=== PATIENT | female | born 1975 | race Caucasian/White ===

== ENCOUNTER 2020-06-18 17:52 | Outpatient (REF) | payer OTHER, SELFPAY | END 2020-06-18 17:53 | disposition home or self-care (01) | LOC: HO.LAB 17:52 | PROVIDERS: Visit Provider Internal Medicine | DX: Z20.828 Contact with and (suspected) exposure to other viral communicable diseases (principal) | CPT/HCPCS: C9803; U0003 ==

== ENCOUNTER 2021-08-07 16:17 | Emergency (ER) | payer OTHER, SELFPAY ==
--- NOTE | ~2021-08-07 | CT_ITS ---
EXAMINATION: CT ABDOMEN AND PELVIS WITHOUT CONTRAST CLINICAL INFORMATION: Flank pain. COMPARISON: CT abdomen/pelvis dated from 01/07/2010. TECHNIQUE: Multidetector volumetric imaging was performed from the superior aspect of the liver through the pubic symphysis. Sagittal and coronal reformatted images were obtained on the technologist's workstation. This CT examination was performed using dose optimization techniques as appropriate, variously including the following: *Automated exposure control *Adjustment of mA and/or kV according to patient size (this includes techniques or standardized protocols for targeted exams where dose is matched to indication/reason for exam; i.e. extremities or head) *Use of iterative reconstruction technique DLP: 557 mGy-cm FINDINGS: LUNG BASES: Evaluation of small pulmonary nodules is limited due to respiratory motion. No focal consolidation or pleural effusion. LIVER, GALLBLADDER, AND BILIARY TREE: The liver is normal in size, shape, and attenuation. No focal hepatic lesion or biliary ductal dilatation is present. The gallbladder is unremarkable with no evidence of radiopaque gallstones, gallbladder wall thickening, or obvious pericholecystic inflammatory changes. PANCREAS: Unremarkable. SPLEEN: Unremarkable. ADRENAL GLANDS: Unremarkable. KIDNEYS AND URETERS: The kidneys are normal in size, shape, and attenuation. There is a 1 cm water density exophytic cyst in the upper pole of the right kidney. No hydronephrosis, hydroureter, or calculi seen. No perinephric stranding. BLADDER: Unremarkable. GASTROINTESTINAL TRACT: Stomach and the small bowel are nondilated. Normal appendix. Mild colonic diverticulosis without inflammatory changes to suspect acute diverticulitis. No bowel obstruction. ABDOMINAL WALL: Small fat-containing umbilical hernia. LYMPH NODES: No lymphadenopathy by size criteria. VASCULAR: Unremarkable. PELVIC VISCERA: The uterus is retroflexed. An IUD is within the endometrium. No adnexal lesions. OSSEOUS STRUCTURES: No acute or aggressive appearing osseous abnormalities. Mild thoracolumbar spondylosis. Small anteroinferior osteophyte at L2. Nonspecific sclerosis in the inferior endplates of T10 and T11 is likely degenerative in nature. CT/CT abdomen pelvis wo con IMPRESSION: Mild diverticulosis without evidence of acute diverticulitis. No nephrolithiasis or hydronephrosis.
--- NOTE | ~2021-08-07 | US_ITS ---
EXAMINATION: US ABDOMEN LIMITED CLINICAL INFORMATION: Right upper quadrant pain. COMPARISON: CT abdomen/pelvis done earlier today at 7:52 PM. TECHNIQUE: Real-time imaging of the right upper quadrant abdominal viscera. FINDINGS: PANCREAS: Not visualized due to overlying bowel gas. LIVER: Increased parenchymal echogenicity suggesting hepatic steatosis. No focal abnormalities. No intrahepatic biliary ductal dilatation. GALLBLADDER: Normal. The gallbladder is physiologically distended without evidence of stones, sludge, polyps, wall thickening or pericholecystic fluid. COMMON BILE DUCT: Normal in caliber measuring 0.4 cm in diameter. RIGHT KIDNEY: Normal. No hydronephrosis. No renal calculi or focal parenchymal lesions. The kidney measures 12 cm in maximum dimension. FREE FLUID: None. US/US abdomen limited IMPRESSION: Increased hepatic parenchymal echogenicity suggesting the presence of hepatic steatosis. Otherwise, normal examination.
[2021-08-07 16:26] VITALS: BP 153/102; PULSE 98; RESP 20; TEMP 36.7; O2SAT 98; BMI 27.4
--- NOTE | 2021-08-07 18:20 | ED.BACK ---
HPI - Back Pain/Injury General Chief Complaint: Back Pain/Injury <JEFFY Ji - Last Filed: 08/08/21 00:49> Stated Complaint: severe side and back pain <JEFFY Ji - Last Filed: 08/08/21 00:49> Time Seen by Provider: 08/07/21 16:31 <JEFFY Ji - Last Filed: 08/08/21 00:49> Source: patient <JEFFY Ji Last Filed: 08/08/21 00:49> Mode of arrival: ambulatory <JEFFY Ji Last Filed: 08/08/21 00:49> Limitations: no limitations <JEFFY Ji - Last Filed: 08/08/21 00:49> History of Present Illness HPI Narrative: 46-year-old female no known medical history presents the emergency department with complaints of severe 10/10 right-sided flank pain that started 3 days ago and has been progressively worsening. Patient tells me that the pain is severe in nature intermittent, described as stabbing. She tells me it is worse than childbirth. She tells me she is having no urinary symptoms. This has never happened to her before. She has no history of kidney stones. She denies fevers, chills, nausea, vomiting, chest pain, shortness of breath, for dysuria, hematuria, urinary frequency, urgency. <JEFFY Ji - Last Filed: 08/08/21 00:49> MD elicited complaint: back pain <JEFFY Ji Last Filed: 08/08/21 00:49> Onset (ago): day(s) (3) <JEFFY Ji Last Filed: 08/08/21 00:49> Timing: intermittent <JEFFY Ji - Last Filed: 08/08/21 00:49> Severity: severe <JEFFY Ji Last Filed: 08/08/21 00:49> Pain scale (0-10): 10 <JEFFY Ji Last Filed: 08/08/21 00:49> Similar Symptoms Previously: No <JEFFY Ji Last Filed: 08/08/21 00:49> Quality: stabbing <JEFFY Ji Last Filed: 08/08/21 00:49> Location: right flank <JEFFY Ji Last Filed: 08/08/21 00:49> Radiation: none <JEFFY Ji Last Filed: 08/08/21 00:49> Exacerbating factors: none <JEFFY Ji Last Filed: 08/08/21 00:49> Relieving factors: none <JEFFY Ji Last Filed: 08/08/21 00:49> Associated symptoms: denies other symptoms <JEFFY Ji Last Filed: 08/08/21 00:49> Work related injury: No <JEFFY Ji Last Filed: 08/08/21 00:49> Related Data Home Medications: Previous Rx's Medication Instructions Recorded cyclobenzaprine 10 mg tablet 10 mg PO BEDTIME PRN #10 tab 08/08/21 morphine 15 mg immediate release 15 mg PO Q8H PRN #8 tab 08/08/21 tablet <JEFFY Ji Last Filed: 08/08/21 00:49> Allergies/Adverse Reactions: Allergies Allergy/AdvReac Type Severity Reaction Status Date / Time gluten [GLUTEN] Allergy Severe DIARRHEA, Unverified 03/06/20 16:58 ABD CRAMPING Sulfa (Sulfonamide Allergy Unknown UNKNOWN Unverified 03/06/20 16:58 Antibiotics) <JEFFY Ji Last Filed: 08/08/21 00:49> Review of Systems Review of Systems: Constitutional : No Fever, No Chills ENT/Mouth : No sore throat Eyes: No Eye Pain, No Swelling, No Redness Cardiovascular : No Chest Pain, No SOB Respiratory : No Cough, No Sputum, No Wheezing Gastrointestinal : positive Nausea, No Vomiting, No Diarrhea, No abdominal pain Genitourinary : No Dysuria, No urinary frequency, No Hematuria, positive Flank Pain, No hesitancy Musculoskeletal : No joint pain, No Myalgias Skin : No Skin Lesions, No rash Neuro : No Weakness, No Numbness, No Headache Psych : No Anxiety/Panic, No Depression All other systems reviewed and are negative <JEFFY Ji - Last Filed: 08/08/21 00:49> Yes all other systems are reviewed and are negative <JEFFY Ji - Last Filed: 08/08/21 00:49> [facility] Past Medical History Attestation statement: The following information was validated with the patient. <JEFFY Ji - Last Filed: 08/08/21 00:49> Source: old records reviewed and nursing notes reviewed <JEFFY Ji - Last Filed: 08/08/21 00:49> Social History Social History: Social History Advance Directives: No Advance Directives Information Provided: No Patient : No <JEFFY Ji - Last Filed: 08/08/21 00:49> Physical Exam Vital Signs: Vital Signs: Last Vital Signs Temp 98.0 F 08/07/21 16:26 Pulse 86 08/07/21 21:57 Resp 18 08/07/21 21:57 BP 148/93 H 08/07/21 21:57 Pulse Ox 96 08/07/21 21:57 BMI result Body Mass Index 27.4 Patient noted to be hypertensive however is experiencing severe right-sided flank pain, will recheck vitals after pain is well controlled with pain medicine. <JEFFY Ji - Last Filed: 08/08/21 00:49> Vital Signs: Last Vital Signs Temp 98.0 F 08/07/21 16:26 Pulse 86 08/07/21 21:57 Resp 18 08/07/21 21:57 BP 148/93 H 08/07/21 21:57 Pulse Ox 96 08/07/21 21:57 BMI result Body Mass Index 27.4 <Li Boyle MD - Last Filed: 08/08/21 01:17> Appearance: Alert.? Oriented X3.? No acute distress.? Head: Normocephalic, atraumatic, no step-offs or deformities Eyes: Pupils equal, round and reactive to light.? ENT: Pharynx normal.? Neck: Normal inspection.? Neck supple.? CVS: Normal heart rate and rhythm.? Pulses normal.? Respiratory: No respiratory distress.? Breath sounds normal.? Abdomen: Soft and nontender.? Skin: Skin warm and dry.? Normal skin color.? Normal skin turgor.? Extremities: No lower extremity edema.? No calf ttp. 5/5 strength to bilateral upper and lower extremities Back: No midline tenderness, no C-spine tenderness, full range of motion, + CVA tendernes on right negative on left. Neuro: Oriented X 3.? No motor deficit.? No sensory deficit. <JEFFY Ji - Last Filed: 08/08/21 00:49> Course Reevaluation(s) Reevaluation #1: Elevated white blood cell count, this is why ceftriaxone 1 g was given. Patient is noted to be hypercoagulable. No acute electrolyte abnormalities. Bilirubin slightly elevated 1.1. Transaminases within normal limits. Urine is clean. Urine negative. COVID negative. Patient was medicated with morphine x2, Toradol, Ativan, 2L.. Still complaining of pain. Sign out was given to . Pending lipase likely dc home. <JEFFY Ji - Last Filed: 08/08/21 00:49> Time: 00:48 <JEFFY Ji - Last Filed: 08/08/21 00:49> Reevaluation #2: Review of all investigations negative for any acute findings to better explain patient's presentation and her pain is currently well controlled. She was encouraged to follow-up with primary care provider on Tuesday morning. <Li Boyle MD - Last Filed: 08/08/21 01:17> Time: 01:14 <Li Boyle MD - Last Filed: 08/08/21 01:17> MDM - Back Pain/Injury MDM Narrative Medical decision making narrative: 1823 46 yo f presents w/ severe r. sided flank pain X3 days, No nausea vomiting, fevers or chills. PE significant for severe r sided flank pain and r. sided cva tenderness Plan- CT abdomen and pelvis, labs, ua. Pain meds. Will r/o UTI, pylo an obstructing uropathy. <JEFFY Ji - Last Filed: 08/08/21 00:49> Medical Records Attestation: I reviewed the patient's medical records. <JEFFY Ji - Last Filed: 08/08/21 00:49> Lab Data Attestation: I reviewed the patient's lab results. <JEFFY Ji - Last Filed: 08/08/21 00:49> Result diagrams: : 08/07/21 18:34 08/07/21 18:49 <JEFFY Ji - Last Filed: 08/08/21 00:49> Labs: Lab Results 08/07/21 08/07/21 08/07/21 Range/Units 18:34 18:38 18:38 WBC 12.9 H (4.8-10.8) X10*3/uL RBC 5.31 (4.20-5.50) X10*6/uL Hgb 16.8 H (12.0-16.0) g/dl Hct 48.7 H (37.0-47.0) % MCV 91.7 (80.0-98.0) fL MCH 31.6 (27.0-33.0) pg MCHC 34.5 (31.0-35.0) g/dl RDW 12.2 (11.0-16.0) % Plt Count 273 (160-400) X10*3/uL MPV 8.8 L (9.4-12.3) fL Immature Gran % (Auto) 0.3 (0.0-0.4) % Neut % (Auto) 67.9 (45-73) % Lymph % (Auto) 24.9 (20-40) % [place] % (Auto) 4.9 (2-11) % Eos % (Auto) 1.8 (0-4) % Baso % (Auto) 0.2 (0-2) % Lymph # (Auto) 3.2 (1.2-4.9) X10*3/uL [place] # (Auto) 0.6 (0.1-1.2) X10*3/uL Eos # (Auto) 0.2 (0.0-0.4) X10*3/uL Baso # (Auto) 0.0 (0.0-0.2) X10*3/uL Abs Immat Gran (auto) 0.04 H (0.00-0.03) X10*3/uL Absolute Neuts (auto) 8.8 H (2.0-8.3) x10*3/uL Absolute Nucleated RBC 0.000 (0.0-0.012) X10*3/uL Nucleated RBC % (auto) 0.0 (0.0-0.2) /100WBC Sodium (135-145) mmol/L Potassium (3.3-5.1) mmol/L Chloride (96-108) mmol/L Carbon Dioxide (22-29) mmol/L Anion Gap (12-20) BUN (9-16) mg/dL Creatinine (0.5-1.4) mg/dL Estim Creat Clear Calc Estimated GFR Random Glucose (60-115) mg/dL Calcium (8.4-10.2) mg/dL Total Bilirubin (0.0-1.0) mg/dL AST (5-31) U/L ALT (0-31) U/L Alkaline Phosphatase (39-117) U/L Total Protein (6.5-8.0) g/dL Albumin (3.5-5.0) g/dL Lipase (8-78) U/L Beta HCG, Quant mIU/mL Urine Color YELLOW Urine Appearance CLEAR Urine pH 6.5 (5.0-8.0) Ur Specific [place] 1.010 (1.005-1.025) Urine Protein NEG (NEG-TRACE) MG/DL Urine Glucose (UA) NEG (NEG) MG/DL Urine Ketones NEG (NEG) MG/DL Urine Blood NEG (NEG) Urine Nitrite NEG (NEG) Ur Leukocyte Esterase NEG (NEG) Urine Test NEGATIVE (NEGATIVE) 08/07/21 Range/Units 18:49 WBC (4.8-10.8) X10*3/uL RBC (4.20-5.50) X10*6/uL Hgb (12.0-16.0) g/dl Hct (37.0-47.0) % MCV (80.0-98.0) fL MCH (27.0-33.0) pg MCHC (31.0-35.0) g/dl RDW (11.0-16.0) % Plt Count (160-400) X10*3/uL MPV (9.4-12.3) fL Immature Gran % (Auto) (0.0-0.4) % Neut % (Auto) (45-73) % Lymph % (Auto) (20-40) % [place] % (Auto) (2-11) % Eos % (Auto) (0-4) % Baso % (Auto) (0-2) % Lymph # (Auto) (1.2-4.9) X10*3/uL [place] # (Auto) (0.1-1.2) X10*3/uL Eos # (Auto) (0.0-0.4) X10*3/uL Baso # (Auto) (0.0-0.2) X10*3/uL Abs Immat Gran (auto) (0.00-0.03) X10*3/uL Absolute Neuts (auto) (2.0-8.3) x10*3/uL Absolute Nucleated RBC (0.0-0.012) X10*3/uL Nucleated RBC % (auto) (0.0-0.2) /100WBC Sodium 141 (135-145) mmol/L Potassium 4.3 (3.3-5.1) mmol/L Chloride 107 (96-108) mmol/L Carbon Dioxide 26 (22-29) mmol/L Anion Gap 12 (12-20) BUN 13 (9-16) mg/dL Creatinine 0.87 (0.5-1.4) mg/dL Estim Creat Clear Calc 81.8 Estimated GFR > 60 Random Glucose 101 (60-115) mg/dL Calcium 9.2 (8.4-10.2) mg/dL Total Bilirubin 1.1 H (0.0-1.0) mg/dL AST 18 (5-31) U/L ALT 24 (0-31) U/L Alkaline Phosphatase 80 (39-117) U/L Total Protein 6.8 (6.5-8.0) g/dL Albumin 4.3 (3.5-5.0) g/dL Lipase 28 (8-78) U/L Beta HCG, Quant < 2 mIU/mL Urine Color Urine Appearance Urine pH (5.0-8.0) Ur Specific [place] (1.005-1.025) Urine Protein (NEG-TRACE) MG/DL Urine Glucose (UA) (NEG) MG/DL Urine Ketones (NEG) MG/DL Urine Blood (NEG) Urine Nitrite (NEG) Ur Leukocyte Esterase (NEG) Urine Test (NEGATIVE) <JEFFY Ji - Last Filed: 08/08/21 00:49> Lab Results 08/07/21 08/07/21 08/07/21 Range/Units 18:34 18:38 18:38 WBC 12.9 H (4.8-10.8) X10*3/uL RBC 5.31 (4.20-5.50) X10*6/uL Hgb 16.8 H (12.0-16.0) g/dl Hct 48.7 H (37.0-47.0) % MCV 91.7 (80.0-98.0) fL MCH 31.6 (27.0-33.0) pg MCHC 34.5 (31.0-35.0) g/dl RDW 12.2 (11.0-16.0) % Plt Count 273 (160-400) X10*3/uL MPV 8.8 L (9.4-12.3) fL Immature Gran % (Auto) 0.3 (0.0-0.4) % Neut % (Auto) 67.9 (45-73) % Lymph % (Auto) 24.9 (20-40) % [place] % (Auto) 4.9 (2-11) % Eos % (Auto) 1.8 (0-4) % Baso % (Auto) 0.2 (0-2) % Lymph # (Auto) 3.2 (1.2-4.9) X10*3/uL [place] # (Auto) 0.6 (0.1-1.2) X10*3/uL Eos # (Auto) 0.2 (0.0-0.4) X10*3/uL Baso # (Auto) 0.0 (0.0-0.2) X10*3/uL Abs Immat Gran (auto) 0.04 H (0.00-0.03) X10*3/uL Absolute Neuts (auto) 8.8 H (2.0-8.3) x10*3/uL Absolute Nucleated RBC 0.000 (0.0-0.012) X10*3/uL Nucleated RBC % (auto) 0.0 (0.0-0.2) /100WBC Sodium (135-145) mmol/L Potassium (3.3-5.1) mmol/L Chloride (96-108) mmol/L Carbon Dioxide (22-29) mmol/L Anion Gap (12-20) BUN (9-16) mg/dL Creatinine (0.5-1.4) mg/dL Estim Creat Clear Calc Estimated GFR Random Glucose (60-115) mg/dL Calcium (8.4-10.2) mg/dL Total Bilirubin (0.0-1.0) mg/dL AST (5-31) U/L ALT (0-31) U/L Alkaline Phosphatase (39-117) U/L Total Protein (6.5-8.0) g/dL Albumin (3.5-5.0) g/dL Lipase (8-78) U/L Beta HCG, Quant mIU/mL Urine Color YELLOW Urine Appearance CLEAR Urine pH 6.5 (5.0-8.0) Ur Specific [place] 1.010 (1.005-1.025) Urine Protein NEG (NEG-TRACE) MG/DL Urine Glucose (UA) NEG (NEG) MG/DL Urine Ketones NEG (NEG) MG/DL Urine Blood NEG (NEG) Urine Nitrite NEG (NEG) Ur Leukocyte Esterase NEG (NEG) Urine Test NEGATIVE (NEGATIVE) 08/07/21 Range/Units 18:49 WBC (4.8-10.8) X10*3/uL RBC (4.20-5.50) X10*6/uL Hgb (12.0-16.0) g/dl Hct (37.0-47.0) % MCV (80.0-98.0) fL MCH (27.0-33.0) pg MCHC (31.0-35.0) g/dl RDW (11.0-16.0) % Plt Count (160-400) X10*3/uL MPV (9.4-12.3) fL Immature Gran % (Auto) (0.0-0.4) % Neut % (Auto) (45-73) % Lymph % (Auto) (20-40) % [place] % (Auto) (2-11) % Eos % (Auto) (0-4) % Baso % (Auto) (0-2) % Lymph # (Auto) (1.2-4.9) X10*3/uL [place] # (Auto) (0.1-1.2) X10*3/uL Eos # (Auto) (0.0-0.4) X10*3/uL Baso # (Auto) (0.0-0.2) X10*3/uL Abs Immat Gran (auto) (0.00-0.03) X10*3/uL Absolute Neuts (auto) (2.0-8.3) x10*3/uL Absolute Nucleated RBC (0.0-0.012) X10*3/uL Nucleated RBC % (auto) (0.0-0.2) /100WBC Sodium 141 (135-145) mmol/L Potassium 4.3 (3.3-5.1) mmol/L Chloride 107 (96-108) mmol/L Carbon Dioxide 26 (22-29) mmol/L Anion Gap 12 (12-20) BUN 13 (9-16) mg/dL Creatinine 0.87 (0.5-1.4) mg/dL Estim Creat Clear Calc 81.8 Estimated GFR > 60 Random Glucose 101 (60-115) mg/dL Calcium 9.2 (8.4-10.2) mg/dL Total Bilirubin 1.1 H (0.0-1.0) mg/dL AST 18 (5-31) U/L ALT 24 (0-31) U/L Alkaline Phosphatase 80 (39-117) U/L Total Protein 6.8 (6.5-8.0) g/dL Albumin 4.3 (3.5-5.0) g/dL Lipase 28 (8-78) U/L Beta HCG, Quant < 2 mIU/mL Urine Color Urine Appearance Urine pH (5.0-8.0) Ur Specific [place] (1.005-1.025) Urine Protein (NEG-TRACE) MG/DL Urine Glucose (UA) (NEG) MG/DL Urine Ketones (NEG) MG/DL Urine Blood (NEG) Urine Nitrite (NEG) Ur Leukocyte Esterase (NEG) Urine Test (NEGATIVE) <Li Boyle MD - Last Filed: 08/08/21 01:17> Critical Care Time Critical Care Time Critical Care Time: No <JEFFY Ji - Last Filed: 08/08/21 00:49> Discharge Plan Discharge Clinical Impression: Flank pain <JEFFY Ji - Last Filed: 08/08/21 00:49> Patient Disposition: Home, Self-Care <JEFFY Ji - Last Filed: 08/08/21 00:49> Instructions: Flank Pain (ED) <JEFFY Ji - Last Filed: 08/08/21 00:49> Additional Instructions: Take your medications as prescribed. If you were prescribed antibiotics today, it is important that you take your medication to their entirety, do not skip any doses, do not finish them early. Follow-up with your primary care provider this week. Return to the emergency department with new or worsening symptoms. Such as worsening pain, pain with urination, urinary frequency or urgency, blood in urine, abdominal pain, chest pain, shortness of breath, fevers, chills, weakness, lethargy, headache or dizziness. In case of emergency call 911 I sent morphine and narcotics your pharmacy. Only take this for severe pain. For okxi-gx-vowdiayh pain I recommend you take ibuprofen every 6 hours, Tylenol every 4. I have also sent cyclobenzaprine a muscle relaxer to her pharmacy please take this as needed, do not take this while operating any machinery or driving as this can make you drowsy. I attest that I have reviewed patients [employer], and at the time prescribing the patient a controlled substance is appropriate based off of patients diagnosis and treatment plan. <JEFFY Ji - Last Filed: 08/08/21 00:49> Prescriptions: New cyclobenzaprine 10 mg tablet 10 mg PO BEDTIME PRN (Reason: muscle spasm) Qty: 10 0RF morphine 15 mg tablet 15 mg PO Q8H PRN (Reason: pain) Qty: 8 0RF Rx Instructions: Patient can partially filled prescription upon request <JEFFY Ji - Last Filed: 08/08/21 00:49> Referrals: Linda Williamson, [employer] [Primary Care Provider] - 2 days <JEFFY Ji - Last Filed: 08/08/21 00:49> Stand Alone Forms: Work/School Release <JEFFY Ji - Last Filed: 08/08/21 00:49>
[2021-08-07 18:40] LABS: MANUAL DIFF FLAG NO
[2021-08-07 18:42] LABS: Basophils Percent Auto 0.2 % (0-2); Eosinophils Absolute Auto 0.2 X10*3/uL (0.0-0.4); Eosinophils Percent Auto 1.8 % (0-4); Hematocrit 48.7 % (37.0-47.0); Hemoglobin 16.8 g/dl (12.0-16.0); Imm Gran Abs Auto 0.04 X10*3/uL (0.00-0.03); Imm Gran Pct Auto 0.3 % (0.0-0.4); Lymphocytes Absolute Auto 3.2 X10*3/uL (1.2-4.9); Lymphocytes Percent Auto 24.9 % (20-40); Mean Corpuscular HGB Conc 34.5 g/dl (31.0-35.0); Mean Corpuscular Hemoglobin 31.6 pg (27.0-33.0); Mean Corpuscular Volume 91.7 fL (80.0-98.0); Mean Platelet Volume 8.8 fL (9.4-12.3); Monocytes Absolute Auto 0.6 X10*3/uL (0.1-1.2); Monocytes Percent Auto 4.9 % (2-11); Neutrophils Absolute Auto 8.8 x10*3/uL (2.0-8.3); Neutrophils Percent Auto 67.9 % (45-73); Platelet Count 273 X10*3/uL (160-400); Red Blood Count 5.31 X10*6/uL (4.20-5.50); Red Cell Distribution Width 12.2 % (11.0-16.0); White Blood Count 12.9 X10*3/uL (4.8-10.8)
[2021-08-07 18:59] LABS: Appearance Urine CLEAR; Color Urine YELLOW; Glucose Urine UA NEG (NEG); Leukocyte Esterase Urine NEG (NEG); Nitrite Urine NEG (NEG); PH 6.5 (5.0-8.0); Urine Blood NEG (NEG); Urine Ketones NEG (NEG); Urine Protein NEG (NEG-TRACE)
[2021-08-07] MEDS: Morphine Sulfate 4 MG/ML CARTRIDGE IVPUSH (19:02)
[2021-08-07] MEDS: cefTRIAXone sodium 1 GM in 0.9 % Sodium Chloride 50 ML IV (19:02)
[2021-08-07] MEDS: ondansetron HCL 4 MG/2 ML VIAL IVPUSH (19:02)
[2021-08-07] MEDS: 0.9 % Sodium Chloride 1,000 ML 999 ML IV (19:02)
[2021-08-07 19:20] LABS: Alanine Aminotransferase 24 U/L (0-31); Albumin Level 4.3 g/dL (3.5-5.0); Alkaline Phosphatase 80 U/L (39-117); Anion Gap 12 (12-20); Aspartate Amino Transferase 18 U/L (5-31); Bilirubin Total 1.1 mg/dL (0.0-1.0); Blood Urea Nitrogen 13 mg/dL (9-16); Calcium 9.2 mg/dL (8.4-10.2); Carbon Dioxide 26 mmol/L (22-29); Chloride 107 mmol/L (96-108); Creatinine Clr Calc Pharmacy 81.8; Estimated Glomerular Filt Rate > 60; Glucose Random 101 mg/dL (60-115); Potassium 4.3 mmol/L (3.3-5.1); Sodium 141 mmol/L (135-145); Total Protein 6.8 g/dL (6.5-8.0)
[2021-08-07 19:40] LABS: UPreg QC Valid YES; Urine Pregnancy NEGATIVE (NEGATIVE)
[2021-08-07 20:02] LABS: HCG Quantitative < 2 mIU/mL
[2021-08-07 20:05] VITALS: BP 137/79; PULSE 78; RESP 16; O2SAT 98
[2021-08-07] MEDS: Morphine Sulfate 2 MG/ML CARTRIDGE IVPUSH (21:12)
[2021-08-07 21:57] VITALS: BP 148/93; PULSE 86; RESP 18; O2SAT 96
[2021-08-07] MEDS: LORazepam 2 MG/ML VIAL 1 MG IVPUSH (21:58)
[2021-08-08] MEDS: 0.9 % Sodium Chloride 1,000 ML 999 ML IV
[2021-08-08] MEDS: Ketorolac Tromethamine 15 MG/ML VIAL IVPUSH (00:16)
[2021-08-08 00:52] LABS: Lipase 28 U/L (8-78)
--- NOTE | 2021-08-08 01:27 | PC.NURSE ---
PT CALLED [facility]ILY [facility]BER FOR [facility].
== END 2021-08-08 01:27 | disposition home or self-care (01) ==
PROVIDERS: Emergency Medicine; Physician Assistant; Emergency Provider Student in an Organized Health Care Education/Training Program; PCP Nurse Practitioner Family
DX: R10.9 Unspecified abdominal pain (principal)
CPT/HCPCS: 36415; 74176; 76705; 80053; 81003; 81025; 83690; 84702; 85025; 96361; 96374; 96375; 96376; 99284; J0696; J1885; J2060; J2270; J2405

== ENCOUNTER 2021-09-16 09:11 | Emergency (ER) | payer OTHER, SELFPAY ==
--- NOTE | 2021-09-16 | ECG_ITS ---
Test Reason : cp Blood Pressure : / mmHG Vent. Rate : 088 BPM Atrial Rate : 088 BPM P-R Int : 150 ms QRS Dur : 060 ms QT Int : 348 ms P-R-T Axes : 078 010 040 degrees QTc Int : 421 ms Normal sinus rhythm Anteroseptal infarct (cited on or before 28-OCT-2015) Abnormal ECG When compared with ECG of 28-OCT-2015 21:21, No significant change was found Referred By: Generic ED Physician Electronically Signed By:ARIELLE HILLS
--- NOTE | ~2021-09-16 | US_ITS ---
EXAMINATION: US VENOUS ULTRASOUND WITH DOPPLER LOWER EXTREMITY, BILATERAL CLINICAL INFORMATION: Bilateral calf pain/spasm. COMPARISON: None TECHNIQUE: Ultrasound of the deep veins is performed from the hip to the calf with compression sonography and color and pulse Doppler assessment. Spectral analysis with color-flow imaging is performed. FINDINGS: RIGHT: There is normal venous compression and respiratory variation and augmented flow. The visualized common femoral vein, superficial femoral vein, profunda femoral vein, popliteal vein, and the trifurcation region shows no evidence of deep venous thrombosis. There is no significant popliteal fossa cyst. LEFT: There is normal venous compression and respiratory variation and augmented flow. The visualized common femoral vein, superficial femoral vein, profunda femoral vein, popliteal vein, and the trifurcation region shows no evidence of deep venous thrombosis. There is no significant popliteal fossa cyst. If the patient's symptoms persist, followup ultrasound in 5 days 7 days might be of value to exclude proximal propagation from a non-visualized calf vein. US/US venous duplex LE BI IMPRESSION: No DVT demonstrated in the bilateral lower extremity.
--- NOTE | ~2021-09-16 | XR_ITS ---
EXAMINATION: XR CHEST CLINICAL INFORMATION: Weakness, chills. COMPARISON: 05/31/2017 chest radiographs. TECHNIQUE: Frontal view of the chest was obtained. FINDINGS: No significant abnormality is noted involving the heart, lungs, mediastinum, bony thorax or soft tissues. XR/XR chest 1V IMPRESSION: No acute cardiopulmonary process.
[2021-09-16 09:22] VITALS: BP 170/98; PULSE 89; RESP 16; TEMP 36.4; O2SAT 99; BMI 27.4
--- NOTE | 2021-09-16 10:07 | ED_ITS ---
HPI - Chest Pain General Chief Complaint: Chest Pain Stated Complaint: Chest pain/shoulder pain Time Seen by Provider: 09/16/21 09:48 Source: patient Mode of arrival: ambulatory Limitations: no limitations History of Present Illness HPI narrative: 46-year-old female history of high blood pressure presents to ED for coughing for the past 3 days left-sided chest pain with chills and bodyaches since yesterday. Patient denies any recent long travel, recent surgery, or, any recent trauma. Patient states chest pain is worse when she cough and chest pain is sharp. Patient also states 2 days ago she had bilateral posterior calf spams that resolved on their own. . Patient denies any pleuritic chest pain or cough ing up blood. Patient denies any pressure-like chest pain or numbness/tingling in arms. Related Data Previous Rx's Medication Instructions Recorded cyclobenzaprine 10 mg tablet 10 mg PO BEDTIME PRN #10 tab 08/08/21 morphine 15 mg immediate release 15 mg PO Q8H PRN #8 tab 08/08/21 tablet benzonatate 100 mg capsule 100 mg PO TID PRN 5 Days #15 cap 09/16/21 Allergies Allergy/AdvReac Type Severity Reaction Status Date / Time gluten [GLUTEN] Allergy Severe DIARRHEA, Unverified 03/06/20 16:58 ABD CRAMPING Sulfa (Sulfonamide Allergy Unknown UNKNOWN Unverified 03/06/20 16:58 Antibiotics) Review of Systems Review of Systems: Left-sided chest pain when coughing. Chills. Yes all other systems are reviewed and are negative [facility] Past Medical History Medical History (Updated 09/16/21 @ 13:28 by JEFFY Galloway) Celiac disease HTN (hypertension) Social History Social History Advance Directives: No Advance Directives Information Provided: No Physical Exam Vital Signs: Vital Signs: Last Vital Signs Temp 98.7 F 09/16/21 11:22 Pulse 66 09/16/21 13:46 Resp 18 09/16/21 13:46 BP 148/86 H 09/16/21 13:46 Pulse Ox 97 09/16/21 13:46 BMI result Body Mass Index 27.4 Const: General: cooperative, healthy appearing, comfortable, no acute distress, well developed, alert, awake and Physically active Orientation/consciousness: oriented to time and patient oriented x3 HEENT: Head: Yes normal to inspection, Yes No palpable skull fracture present, Yes normocephalic and Yes atraumatic Eyes: General: appearance normal, both eyes and all related structures Neck: Neck: Yes normal visual inspection, Yes full ROM, Yes no lymph adenopathy, Yes no meningeal signs, Yes trachea midline, Yes supple, No anterior neck swelling and No tender Chest: Chest palpation & inspection: normal inspection of the chest Chest/axillae images: 1. Positive for tenderness on palpation. Negative for any ecchymosis, crepitus, erythema, rash, or deformity. Resp: Effort & Inspection: normal respiratory effort and able to speak in complete sentences Auscultation: clear to auscultation bilaterally Cardio: Jugular venous distension: no JVD Heart sounds: S1 normal heart sound present and S2 normal heart sound present GI: Inspection: Yes normal to inspection and No abdominal wall ecchymosis Palpation (GI): Soft to palpation, not firm, nontender, no guarding and not rigid : General: No CVA tenderness and Yes no CVA tenderness Back/Spine/Pelvis: Back: no CVA tenderness, No CVA tenderness and No back tenderness Skin: General skin exam: no rashes or lesions noted and elasticity normal Neuro: General: oriented to time, patient oriented x3, no meningeal signs and CN's II-XI intact bilaterally Cranial nerves: Yes CN's II-XII intact bilaterally Extrem: Other: Bilateral lower extremities negative for any swelling, pitting edema, calf tenderness or erythema. Bilateral lower extremities motor/neuro/vascular exam intact General: Yes normal to inspection and Yes full ROM Psych: Appearance: grossly normal, well kempt and not disheveled Course Course Course Narrative: History physical exam indicate URI symptoms, but will do a medical evaluation Reevaluation(s) Reevaluation #1: SARS swab negative. EKG negative STEMI. Troponin after having chest pain since yesterday and coughing white mucus for the past 3 days came back negative. Physical exam and BNP negative for congestive heart failure. D-dimer negative. Perc score 0. Patient is sleeping comfortable in bed. Heart score 1. Diagnosis costochondritis. URI. Chest x-ray normal Time: 13:10 MDM - Chest Pain MDM Narrative Medical decision making narrative: Costochondritis. URI. Atypical chest pain. Lab Data Result diagrams: 09/16/21 10:35 09/16/21 10:35 Labs: Lab Results 09/16/21 09/16/21 09/16/21 Range/Units 10:34 10:34 10:35 WBC 7.7 (4.8-10.8) X10*3/uL RBC 5.33 (4.20-5.50) X10*6/uL Hgb 16.6 H (12.0-16.0) g/dl Hct 49.7 H (37.0-47.0) % MCV 93.2 (80.0-98.0) fL MCH 31.1 (27.0-33.0) pg MCHC 33.4 (31.0-35.0) g/dl RDW 12.1 (11.0-16.0) % Plt Count 241 (160-400) X10*3/uL MPV 8.9 L (9.4-12.3) fL Immature Gran % (Auto) 0.3 (0.0-0.4) % Neut % (Auto) 64.1 (45-73) % Lymph % (Auto) 26.0 (20-40) % [place] % (Auto) 7.0 (2-11) % Eos % (Auto) 2.2 (0-4) % Baso % (Auto) 0.4 (0-2) % Lymph # (Auto) 2.0 (1.2-4.9) X10*3/uL [place] # (Auto) 0.5 (0.1-1.2) X10*3/uL Eos # (Auto) 0.2 (0.0-0.4) X10*3/uL Baso # (Auto) 0.0 (0.0-0.2) X10*3/uL Abs Immat Gran (auto) 0.02 (0.00-0.03) X10*3/uL Absolute Neuts (auto) 4.9 (2.0-8.3) x10*3/uL Absolute Nucleated RBC 0.000 (0.0-0.012) X10*3/uL Nucleated RBC % (auto) 0.0 (0.0-0.2) /100WBC PT 12.3 (9.9-13.0) SEC INR 1.1 (0.9-1.1) APTT 38.0 (24.1-38.0) SEC D-Dimer High Sensitivty < 150 NG/ML Sodium (135-145) mmol/L Potassium (3.3-5.1) mmol/L Chloride (96-108) mmol/L Carbon Dioxide (22-29) mmol/L Anion Gap (12-20) BUN (9-16) mg/dL Creatinine (0.5-1.4) mg/dL Estim Creat Clear Calc Estimated GFR Random Glucose (60-115) mg/dL Calcium (8.4-10.2) mg/dL Magnesium (1.6-2.6) mg/dL Total Bilirubin (0.0-1.0) mg/dL AST (5-31) U/L ALT (0-31) U/L Alkaline Phosphatase (39-117) U/L Total Creatine Kinase (26-140) U/L Troponin I High Sens < 3.5 (<3.5-17.0) ng/L B-Natriuretic Peptide (<100) pg/mL Total Protein (6.5-8.0) g/dL Albumin (3.5-5.0) g/dL Influenza Type A (PCR) (Negative) Influenza Type B (PCR) (Negative) RSV RNA Qual (PCR) (Negative) SARS-CoV-2 RNA (RT-PCR) (Negative) 09/16/21 09/16/21 09/16/21 Range/Units 10:35 10:35 10:36 WBC (4.8-10.8) X10*3/uL RBC (4.20-5.50) X10*6/uL Hgb (12.0-16.0) g/dl Hct (37.0-47.0) % MCV (80.0-98.0) fL MCH (27.0-33.0) pg MCHC (31.0-35.0) g/dl RDW (11.0-16.0) % Plt Count (160-400) X10*3/uL MPV (9.4-12.3) fL Immature Gran % (Auto) (0.0-0.4) % Neut % (Auto) (45-73) % Lymph % (Auto) (20-40) % [place] % (Auto) (2-11) % Eos % (Auto) (0-4) % Baso % (Auto) (0-2) % Lymph # (Auto) (1.2-4.9) X10*3/uL [place] # (Auto) (0.1-1.2) X10*3/uL Eos # (Auto) (0.0-0.4) X10*3/uL Baso # (Auto) (0.0-0.2) X10*3/uL Abs Immat Gran (auto) (0.00-0.03) X10*3/uL Absolute Neuts (auto) (2.0-8.3) x10*3/uL Absolute Nucleated RBC (0.0-0.012) X10*3/uL Nucleated RBC % (auto) (0.0-0.2) /100WBC PT (9.9-13.0) SEC INR (0.9-1.1) APTT (24.1-38.0) SEC D-Dimer High Sensitivty NG/ML Sodium 140 (135-145) mmol/L Potassium 4.6 (3.3-5.1) mmol/L Chloride 105 (96-108) mmol/L Carbon Dioxide 29 (22-29) mmol/L Anion Gap 11 L (12-20) BUN 15 (9-16) mg/dL Creatinine 0.91 (0.5-1.4) mg/dL Estim Creat Clear Calc 78.2 Estimated GFR > 60 Random Glucose 106 (60-115) mg/dL Calcium 9.4 (8.4-10.2) mg/dL Magnesium 2.4 (1.6-2.6) mg/dL Total Bilirubin 1.1 H (0.0-1.0) mg/dL AST 14 (5-31) U/L ALT 23 (0-31) U/L Alkaline Phosphatase 87 (39-117) U/L Total Creatine Kinase 79 (26-140) U/L Troponin I High Sens (<3.5-17.0) ng/L B-Natriuretic Peptide < 10 (<100) pg/mL Total Protein 7.0 (6.5-8.0) g/dL Albumin 4.5 (3.5-5.0) g/dL Influenza Type A (PCR) NEGATIVE (Negative) Influenza Type B (PCR) NEGATIVE (Negative) RSV RNA Qual (PCR) NEGATIVE (Negative) SARS-CoV-2 RNA (RT-PCR) NEGATIVE (Negative) ECG Data ECG #1: Interpretation: Normal sinus rhythm. Ventricular rate 88. Pr interval 150. QRS 60. QTC 421. Negative STEMI Discharge Plan Discharge Clinical Impression: Atypical chest pain, Costalchondritis, URI (upper respiratory infection) Patient Disposition: Home, Self-Care Instructions: Chest Pain (DC), Costochondritis (ED), Upper Respiratory Infection (ED) Additional Instructions: Your EKG, blood work, chest x-ray came back negative for heart attack, pneumonia, heart failure, or risk of pulmonary embolus. Please follow-up with your primary care provider. Return to the ED immediately for any chest pain, shortness of breath, coughing up blood, leg swelling, calf pain, weakness, dizziness, or any other concerning symptoms. Prescriptions: New benzonatate 100 mg capsule 100 mg PO TID PRN (Reason: cough) 5 Days Qty: 15 0RF No Action cyclobenzaprine 10 mg tablet 10 mg PO BEDTIME PRN (Reason: muscle spasm) Qty: 10 0RF morphine 15 mg tablet 15 mg PO Q8H PRN (Reason: pain) Qty: 8 0RF Rx Instructions: Patient can partially filled prescription upon request Stand Alone Forms: Work/School Release Interventions: ED Discharge Assessment Last Done: 09/16/21 13:49 Discharge Date/Time: 09/16/21 13:50 Print Language: Burkinan
[2021-09-16] MEDS: LORazepam 1 MG TABLET PO (10:26)
[2021-09-16 10:42] LABS: MANUAL DIFF FLAG NO
[2021-09-16 10:44] LABS: Basophils Percent Auto 0.4 % (0-2); Eosinophils Absolute Auto 0.2 X10*3/uL (0.0-0.4); Eosinophils Percent Auto 2.2 % (0-4); Hematocrit 49.7 % (37.0-47.0); Hemoglobin 16.6 g/dl (12.0-16.0); Imm Gran Abs Auto 0.02 X10*3/uL (0.00-0.03); Imm Gran Pct Auto 0.3 % (0.0-0.4); Mean Corpuscular HGB Conc 33.4 g/dl (31.0-35.0); Mean Corpuscular Hemoglobin 31.1 pg (27.0-33.0); Mean Corpuscular Volume 93.2 fL (80.0-98.0); Mean Platelet Volume 8.9 fL (9.4-12.3); Monocytes Absolute Auto 0.5 X10*3/uL (0.1-1.2); Neutrophils Absolute Auto 4.9 x10*3/uL (2.0-8.3); Neutrophils Percent Auto 64.1 % (45-73); Platelet Count 241 X10*3/uL (160-400); Red Blood Count 5.33 X10*6/uL (4.20-5.50); Red Cell Distribution Width 12.1 % (11.0-16.0); White Blood Count 7.7 X10*3/uL (4.8-10.8)
[2021-09-16 10:52] LABS: INTERNATIONAL NORM RATIO 1.1 (0.9-1.1); Prothrombin Time 12.3 SEC (9.9-13.0)
[2021-09-16 11:01] LABS: Alanine Aminotransferase 23 U/L (0-31); Albumin Level 4.5 g/dL (3.5-5.0); Alkaline Phosphatase 87 U/L (39-117); Aspartate Amino Transferase 14 U/L (5-31); Bilirubin Total 1.1 mg/dL (0.0-1.0); Blood Urea Nitrogen 15 mg/dL (9-16); Calcium 9.4 mg/dL (8.4-10.2); Creatinine Clr Calc Pharmacy 78.2; Estimated Glomerular Filt Rate > 60; Glucose Random 106 mg/dL (60-115); Magnesium 2.4 mg/dL (1.6-2.6)
[2021-09-16 11:03] LABS: B Type Natriuretic Peptide < 10 pg/mL (<100)
[2021-09-16 11:03] LABS: Troponin-I High Sensitivity < 3.5 ng/L (<3.5-17.0)
[2021-09-16 11:10] LABS: Anion Gap 11 (12-20); Carbon Dioxide 29 mmol/L (22-29); Chloride 105 mmol/L (96-108); Potassium 4.6 mmol/L (3.3-5.1); Sodium 140 mmol/L (135-145)
[2021-09-16 11:22] VITALS: BP 172/89; PULSE 65; RESP 17; TEMP 37.1; O2SAT 97
[2021-09-16 11:27] LABS: Influenza A PCR NEGATIVE (Negative); Influenza B PCR NEGATIVE (Negative); Resp Syncy Virus RNA Qual PCR NEGATIVE (Negative); SARS COV2 PCR INHOUSE NEGATIVE (Negative)
[2021-09-16 13:04] LABS: D Dimer High Sensitivity < 150 NG/ML
[2021-09-16 13:46] VITALS: BP 148/86; PULSE 66; RESP 18; O2SAT 97
== END 2021-09-16 13:50 | disposition home or self-care (01) ==
PROVIDERS: Physician Assistant; Emergency Provider Emergency Medicine; PCP Nurse Practitioner Family
DX: R07.89 Other chest pain (principal); M94.0 Chondrocostal junction syndrome [Tietze]; J06.9 Acute upper respiratory infection, unspecified; Z20.822 Contact with and (suspected) exposure to COVID-19; I10 Essential (primary) hypertension
CPT/HCPCS: 0241U; 36415; 71045; 80053; 82550; 83735; 83880; 84484; 85025; 85379; 85610; 85730; 93005; 93970; 99284

== ENCOUNTER 2022-06-15 17:22 | Emergency (ER) | payer OTHER, SELFPAY ==
--- NOTE | ~2022-06-15 | XR_ITS ---
EXAMINATION: XR CHEST CLINICAL INFORMATION: SOB COMPARISON: None TECHNIQUE: Frontal view of the chest was obtained. FINDINGS: No significant abnormality is noted involving the heart, lungs, mediastinum, bony thorax or soft tissues. XR/XR chest 1V IMPRESSION: Unremarkable chest examination.
[2022-06-15 17:29] VITALS: BP 190/110; PULSE 105; RESP 20; TEMP 36.7; O2SAT 98; BMI 26.6
--- NOTE | 2022-06-15 17:30 | ED_ITS ---
HPI - General Adult General Chief complaint: Upper Respiratory Symptoms <JEFFY Ji - Last Filed: 06/15/22 17:37> Stated complaint: Difficulty breathing <JEFFY Ji - Last Filed: 06/15/22 17:37> Time Seen by Provider: 06/15/22 22:56 <JEFFY Ji - Last Filed: 06/15/22 17:37> Source: patient <Moshe Johnson MD - Last Filed: 06/16/22 00:56> Mode of arrival: ambulatory <Moshe Johnson MD - Last Filed: 06/16/22 00:56> Limitations: no limitations <Moshe Johnson MD - Last Filed: 06/16/22 00:56> History of Present Illness HPI narrative: Patient came for nasal congestion cough wheezing body aches tiredness for last 1 week no one else sick at home no chest pain or palpitation no fever or chills patient does deny any history of hypertension but blood pressure gets high when she gets sick get sick <Moshe Johnson MD - Last Filed: 06/16/22 00:56> Related Data Home medications: Previous Rx's Medication Instructions Recorded cyclobenzaprine 10 mg tablet 10 mg PO BEDTIME PRN muscle spasm 08/08/21 #10 tabs morphine 15 mg immediate release 15 mg PO Q8H PRN pain #8 tabs 08/08/21 tablet benzonatate 100 mg capsule 100 mg PO TID PRN cough 5 days #15 09/16/21 caps albuterol sulfate 90 mcg/actuation 2 puff inhalation Q4-6H PRN 06/16/22 aerosol inhaler (ProAir HFA) shortness of breath or wheezing #8.5 grams benzonatate 200 mg capsule 200 mg PO TID PRN cough #30 caps 06/16/22 doxycycline hyclate 100 mg tablet 100 mg PO BID #20 tabs 06/16/22 prednisone 20 mg tablet 40 mg PO DAILY #10 tabs 06/16/22 <JEFFY Ji - Last Filed: 06/15/22 17:37> Allergies/adverse reactions: Allergies Allergy/AdvReac Type Severity Reaction Status Date / Time gluten [GLUTEN] Allergy Severe DIARRHEA, Verified 06/16/22 00:14 ABD CRAMPING Sulfa (Sulfonamide Allergy Unknown UNKNOWN Verified 06/16/22 00:14 Antibiotics) <JEFFY Ji - Last Filed: 06/15/22 17:37> Review of Systems Review of Systems: Yes all other systems are reviewed and are negative <Moshe Johnson MD - Last Filed: 06/16/22 00:56> [facility] [place] Past Medical History Medical History: Medical History Celiac disease HTN (hypertension) <JEFFY Ji - Last Filed: 06/15/22 17:37> Social History Social History: Social History Advance Directives: No Advance Directives Information Provided: No <JEFFY Ji - Last Filed: 06/15/22 17:37> Physical Exam ED Vital Signs: Vital Signs - 24 hr 06/15/22 17:29 06/15/22 23:01 06/15/22 23:40 Temperature 98.1 F 98.1 F Pulse Rate 105 H 97 80 Respiratory Rate 20 20 20 Blood Pressure 190/110 H 190/96 H Pulse Oximetry 98 92 Oxygen Delivery Method Room Air Room Air 06/16/22 00:14 Temperature 97.8 F Pulse Rate 96 Respiratory Rate 20 Blood Pressure 176/85 H Pulse Oximetry 100 Oxygen Delivery Method BMI result Body Mass Index 26.6 <JEFFY Ji - Last Filed: 06/15/22 17:37> Vital Signs - 24 hr 06/15/22 17:29 06/15/22 23:01 06/15/22 23:40 Temperature 98.1 F 98.1 F Pulse Rate 105 H 97 80 Respiratory Rate 20 20 20 Blood Pressure 190/110 H 190/96 H Pulse Oximetry 98 92 Oxygen Delivery Method Room Air Room Air 06/16/22 00:14 Temperature 97.8 F Pulse Rate 96 Respiratory Rate 20 Blood Pressure 176/85 H Pulse Oximetry 100 Oxygen Delivery Method BMI result Body Mass Index 26.6 <Moshe Johnson MD - Last Filed: 06/16/22 00:56> Appearance: Alert. Oriented X3. No acute distress. Eyes: PERRLA, No Nystagmus ENT: Pharynx normal. Oral Mucosa moist Neck: Normal inspection. Neck supple. CVS: Normal heart rate and rhythm. Pulses normal. Respiratory: No respiratory distress. Equal air entry bilateral, bilateral prolonged expiration with frequent cough Abdomen: Soft and nontender. Bowel sounds are present, no mass palpable, no CVA tenderness Skin: Skin warm and dry. Normal skin color. Normal skin turgor. Extremities: No lower extremity edema. No calf tenderness Neuro: Oriented X 3. No motor deficit. <Moshe Johnson MD - Last Filed: 06/16/22 00:56> Course Course Course Narrative: 1730 47 year old female presents w/ cough, sob, fatigue, malaise X 9 days worsening. Patient hasnt tested for flu or covid. Son sick at home with similar sx. Not vaccinated against flu. Denies fevers, chills,chest pain, nausea, vomiting, abd pain PE- paitent appears comfortable,no labored breathing. Significant hypertension noted. 198/110 and 217/112 however patient coughing while obtaining vitals ( states she took BP meds this am however will give an additional dose of her amlodipine 5 mg PO now) Plan- viral panel, cxr, ekg, trop, basic labs <JEFFY Ji - Last Filed: 06/15/22 17:37> Medications Administered Discontinued Medications Generic Name Dose Route Start Last Admin Trade Name Freq PRN Reason Stop Dose Admin Amlodipine Besylate 5 mg 06/15/22 17:35 06/15/22 17:40 Amlodipine Besylate 5 Mg Tablet PO 06/15/22 17:36 5 mg ONCE ONE Administration Protocol Albuterol Sulfate 2.5 mg/ 0 mg 06/15/22 23:20 06/15/22 23:39 Albuterol/Ipratropium 3 ml INHALE 06/15/22 23:21 1 each ONCE ONE Administration Doxycycline Monohydrate 100 mg 06/15/22 23:20 06/16/22 00:14 Doxycycline Monohydrate 100 Mg Capsule PO 06/15/22 23:21 100 mg ONCE ONE Administration Guaifenesin/Codeine Phosphate 10 ml 06/15/22 23:20 06/16/22 00:14 Guaifen/Codeine Sf 200/20/10ml 10 Ml Liquid PO 06/15/22 23:21 10 ml ONCE ONE Administration Prednisone 60 mg 06/15/22 23:20 06/16/22 00:14 Prednisone 20 Mg Tablet PO 06/15/22 23:21 60 mg ONCE ONE Administration <JEFFY Ji - Last Filed: 06/15/22 17:37> Medications Administered Discontinued Medications Generic Name Dose Route Start Last Admin Trade Name Sohail PRN Reason Stop Dose Admin Amlodipine Besylate 5 mg 06/15/22 17:35 06/15/22 17:40 Amlodipine Besylate 5 Mg Tablet PO 06/15/22 17:36 5 mg ONCE ONE Administration Protocol Albuterol Sulfate 2.5 mg/ 0 mg 06/15/22 23:20 06/15/22 23:39 Albuterol/Ipratropium 3 ml INHALE 06/15/22 23:21 1 each ONCE ONE Administration Doxycycline Monohydrate 100 mg 06/15/22 23:20 06/16/22 00:14 Doxycycline Monohydrate 100 Mg Capsule PO 06/15/22 23:21 100 mg ONCE ONE Administration Guaifenesin/Codeine Phosphate 10 ml 06/15/22 23:20 06/16/22 00:14 Guaifen/Codeine Sf 200/20/10ml 10 Ml Liquid PO 06/15/22 23:21 10 ml ONCE ONE Administration Prednisone 60 mg 06/15/22 23:20 06/16/22 00:14 Prednisone 20 Mg Tablet PO 06/15/22 23:21 60 mg ONCE ONE Administration <Moshe Johnson MD - Last Filed: 06/16/22 00:56> Medical Decision Making Lab Data Result Diagrams: : 06/15/22 18:16 06/15/22 18:16 <JEFFY Ji - Last Filed: 06/15/22 17:37> Labs: Lab Results 06/15/22 06/15/22 06/15/22 Range/Units 18:16 18:16 18:16 WBC 16.5 H (4.8-10.8) X10*3/uL RBC 4.93 (4.20-5.50) X10*6/uL Hgb 15.6 (12.0-16.0) g/dl Hct 44.4 (37.0-47.0) % MCV 90.1 (80.0-98.0) fL MCH 31.6 (27.0-33.0) pg MCHC 35.1 H (31.0-35.0) g/dl RDW 12.0 (11.0-16.0) % Plt Count 286 (160-400) X10*3/uL MPV 9.1 L (9.4-12.3) fL Immature Gran % (Auto) 0.5 H (0.0-0.4) % Neut % (Auto) 69.9 (45-73) % Lymph % (Auto) 23.2 (20-40) % [place] % (Auto) 5.5 (2-11) % Eos % (Auto) 0.5 (0-4) % Baso % (Auto) 0.4 (0-2) % Lymph # (Auto) 3.8 (1.2-4.9) X10*3/uL [place] # (Auto) 0.9 (0.1-1.2) X10*3/uL Eos # (Auto) 0.1 (0.0-0.4) X10*3/uL Baso # (Auto) 0.1 (0.0-0.2) X10*3/uL Abs Immat Gran (auto) 0.09 H (0.00-0.03) X10*3/uL Absolute Neuts (auto) 11.5 H (2.0-8.3) x10*3/uL Absolute Nucleated RBC 0.000 (0.0-0.012) X10*3/uL Nucleated RBC % (auto) 0.0 (0.0-0.2) /100WBC Sodium (135-145) mmol/L Potassium (3.3-5.1) mmol/L Chloride (96-108) mmol/L Carbon Dioxide (22-29) mmol/L Anion Gap (12-20) BUN (9-16) mg/dL Creatinine (0.5-1.4) mg/dL Estim Creat Clear Calc Estimated GFR Random Glucose (60-115) mg/dL Calcium (8.4-10.2) mg/dL Total Bilirubin (0.0-1.0) mg/dL AST (5-31) U/L ALT (0-31) U/L Alkaline Phosphatase (39-117) U/L Troponin I High Sens 4.4 (<3.5-17.0) ng/L Total Protein (6.5-8.0) g/dL Albumin (3.5-5.0) g/dL Influenza Type A (PCR) NEGATIVE (Negative) Influenza Type B (PCR) NEGATIVE (Negative) RSV RNA Qual (PCR) NEGATIVE (Negative) SARS-CoV-2 RNA (RT-PCR) NEGATIVE (Negative) 06/15/22 Range/Units 18:16 WBC (4.8-10.8) X10*3/uL RBC (4.20-5.50) X10*6/uL Hgb (12.0-16.0) g/dl Hct (37.0-47.0) % MCV (80.0-98.0) fL MCH (27.0-33.0) pg MCHC (31.0-35.0) g/dl RDW (11.0-16.0) % Plt Count (160-400) X10*3/uL MPV (9.4-12.3) fL Immature Gran % (Auto) (0.0-0.4) % Neut % (Auto) (45-73) % Lymph % (Auto) (20-40) % [place] % (Auto) (2-11) % Eos % (Auto) (0-4) % Baso % (Auto) (0-2) % Lymph # (Auto) (1.2-4.9) X10*3/uL [place] # (Auto) (0.1-1.2) X10*3/uL Eos # (Auto) (0.0-0.4) X10*3/uL Baso # (Auto) (0.0-0.2) X10*3/uL Abs Immat Gran (auto) (0.00-0.03) X10*3/uL Absolute Neuts (auto) (2.0-8.3) x10*3/uL Absolute Nucleated RBC (0.0-0.012) X10*3/uL Nucleated RBC % (auto) (0.0-0.2) /100WBC Sodium 140 (135-145) mmol/L Potassium 4.1 (3.3-5.1) mmol/L Chloride 109 H (96-108) mmol/L Carbon Dioxide 24 (22-29) mmol/L Anion Gap 11 L (12-20) BUN 18 H (9-16) mg/dL Creatinine 0.99 (0.5-1.4) mg/dL Estim Creat Clear Calc 70.0 Estimated GFR > 60 Random Glucose 99 (60-115) mg/dL Calcium 9.4 (8.4-10.2) mg/dL Total Bilirubin 0.6 (0.0-1.0) mg/dL AST 20 (5-31) U/L ALT 17 (0-31) U/L Alkaline Phosphatase 76 (39-117) U/L Troponin I High Sens (<3.5-17.0) ng/L Total Protein 6.8 (6.5-8.0) g/dL Albumin 3.9 (3.5-5.0) g/dL Influenza Type A (PCR) (Negative) Influenza Type B (PCR) (Negative) RSV RNA Qual (PCR) (Negative) SARS-CoV-2 RNA (RT-PCR) (Negative) <JEFFY Ji - Last Filed: 06/15/22 17:37> Lab Results 06/15/22 06/15/22 06/15/22 Range/Units 18:16 18:16 18:16 WBC 16.5 H (4.8-10.8) X10*3/uL RBC 4.93 (4.20-5.50) X10*6/uL Hgb 15.6 (12.0-16.0) g/dl Hct 44.4 (37.0-47.0) % MCV 90.1 (80.0-98.0) fL MCH 31.6 (27.0-33.0) pg MCHC 35.1 H (31.0-35.0) g/dl RDW 12.0 (11.0-16.0) % Plt Count 286 (160-400) X10*3/uL MPV 9.1 L (9.4-12.3) fL Immature Gran % (Auto) 0.5 H (0.0-0.4) % Neut % (Auto) 69.9 (45-73) % Lymph % (Auto) 23.2 (20-40) % [place] % (Auto) 5.5 (2-11) % Eos % (Auto) 0.5 (0-4) % Baso % (Auto) 0.4 (0-2) % Lymph # (Auto) 3.8 (1.2-4.9) X10*3/uL [place] # (Auto) 0.9 (0.1-1.2) X10*3/uL Eos # (Auto) 0.1 (0.0-0.4) X10*3/uL Baso # (Auto) 0.1 (0.0-0.2) X10*3/uL Abs Immat Gran (auto) 0.09 H (0.00-0.03) X10*3/uL Absolute Neuts (auto) 11.5 H (2.0-8.3) x10*3/uL Absolute Nucleated RBC 0.000 (0.0-0.012) X10*3/uL Nucleated RBC % (auto) 0.0 (0.0-0.2) /100WBC Sodium (135-145) mmol/L Potassium (3.3-5.1) mmol/L Chloride (96-108) mmol/L Carbon Dioxide (22-29) mmol/L Anion Gap (12-20) BUN (9-16) mg/dL Creatinine (0.5-1.4) mg/dL Estim Creat Clear Calc Estimated GFR Random Glucose (60-115) mg/dL Calcium (8.4-10.2) mg/dL Total Bilirubin (0.0-1.0) mg/dL AST (5-31) U/L ALT (0-31) U/L Alkaline Phosphatase (39-117) U/L Troponin I High Sens 4.4 (<3.5-17.0) ng/L Total Protein (6.5-8.0) g/dL Albumin (3.5-5.0) g/dL Influenza Type A (PCR) NEGATIVE (Negative) Influenza Type B (PCR) NEGATIVE (Negative) RSV RNA Qual (PCR) NEGATIVE (Negative) SARS-CoV-2 RNA (RT-PCR) NEGATIVE (Negative) 06/15/22 Range/Units 18:16 WBC (4.8-10.8) X10*3/uL RBC (4.20-5.50) X10*6/uL Hgb (12.0-16.0) g/dl Hct (37.0-47.0) % MCV (80.0-98.0) fL MCH (27.0-33.0) pg MCHC (31.0-35.0) g/dl RDW (11.0-16.0) % Plt Count (160-400) X10*3/uL MPV (9.4-12.3) fL Immature Gran % (Auto) (0.0-0.4) % Neut % (Auto) (45-73) % Lymph % (Auto) (20-40) % [place] % (Auto) (2-11) % Eos % (Auto) (0-4) % Baso % (Auto) (0-2) % Lymph # (Auto) (1.2-4.9) X10*3/uL [place] # (Auto) (0.1-1.2) X10*3/uL Eos # (Auto) (0.0-0.4) X10*3/uL Baso # (Auto) (0.0-0.2) X10*3/uL Abs Immat Gran (auto) (0.00-0.03) X10*3/uL Absolute Neuts (auto) (2.0-8.3) x10*3/uL Absolute Nucleated RBC (0.0-0.012) X10*3/uL Nucleated RBC % (auto) (0.0-0.2) /100WBC Sodium 140 (135-145) mmol/L Potassium 4.1 (3.3-5.1) mmol/L Chloride 109 H (96-108) mmol/L Carbon Dioxide 24 (22-29) mmol/L Anion Gap 11 L (12-20) BUN 18 H (9-16) mg/dL Creatinine 0.99 (0.5-1.4) mg/dL Estim Creat Clear Calc 70.0 Estimated GFR > 60 Random Glucose 99 (60-115) mg/dL Calcium 9.4 (8.4-10.2) mg/dL Total Bilirubin 0.6 (0.0-1.0) mg/dL AST 20 (5-31) U/L ALT 17 (0-31) U/L Alkaline Phosphatase 76 (39-117) U/L Troponin I High Sens (<3.5-17.0) ng/L Total Protein 6.8 (6.5-8.0) g/dL Albumin 3.9 (3.5-5.0) g/dL Influenza Type A (PCR) (Negative) Influenza Type B (PCR) (Negative) RSV RNA Qual (PCR) (Negative) SARS-CoV-2 RNA (RT-PCR) (Negative) <Moshe Johnson MD - Last Filed: 06/16/22 00:56> Discharge Plan Discharge Clinical Impression: Bronchitis <JEFFY Ji - Last Filed: 06/15/22 17:37> Patient Disposition: Home, Self-Care <JEFFY Ji - Last Filed: 06/15/22 17:37> Instructions: Acute Bronchitis (ED) <JEFFY Ji - Last Filed: 06/15/22 17:37> Additional Instructions: Use albuterol inhaler as prescribed Prednisone , antibiotics and cough drops as prescribed Follow with PCP <JEFFY Ji - Last Filed: 06/15/22 17:37> Prescriptions: New benzonatate 200 mg capsule 200 mg PO TID PRN (Reason: cough) Qty: 30 0RF doxycycline hyclate 100 mg tablet 100 mg PO BID Qty: 20 0RF prednisone 20 mg tablet 40 mg PO DAILY Qty: 10 0RF albuterol sulfate [ProAir HFA] 90 mcg/actuation HFA aerosol inhaler 2 puff inhalation Q4-6H PRN (Reason: shortness of breath or wheezing) Qty: 8.5 0RF No Action cyclobenzaprine 10 mg tablet 10 mg PO BEDTIME PRN (Reason: muscle spasm) Qty: 10 0RF morphine 15 mg tablet 15 mg PO Q8H PRN (Reason: pain) Qty: 8 0RF Rx Instructions: Patient can partially filled prescription upon request benzonatate 100 mg capsule 100 mg PO TID PRN (Reason: cough) 5 Days Qty: 15 0RF <JEFFY Ji - Last Filed: 06/15/22 17:37> Interventions: ED Discharge Assessment Last Done: 06/16/22 00:51 <JEFFY Ji - Last Filed: 06/15/22 17:37> Discharge Date/Time: 06/16/22 00:52 <JEFFY Ji - Last Filed: 06/15/22 17:37>
--- NOTE | 2022-06-15 17:34 | ECG_ITS ---
Test Reason : SOB Blood Pressure : / mmHG Vent. Rate : 091 BPM Atrial Rate : 091 BPM P-R Int : 146 ms QRS Dur : 062 ms QT Int : 336 ms P-R-T Axes : 067 010 039 degrees QTc Int : 413 ms Normal sinus rhythm Anteroseptal infarct (cited on or before 28-OCT-2015) Abnormal ECG When compared with ECG of 16-SEP-2021 09:10, No significant change was found Referred By: Elizabeth Miller Electronically Signed By:JAMIN LAZO MD
[2022-06-15] MEDS: amLODIPine Besylate 5 MG TABLET PO (17:40)
[2022-06-15 18:22] LABS: MANUAL DIFF FLAG NO
[2022-06-15 18:23] LABS: Basophils Absolute Auto 0.1 X10*3/uL (0.0-0.2); Basophils Percent Auto 0.4 % (0-2); Eosinophils Absolute Auto 0.1 X10*3/uL (0.0-0.4); Eosinophils Percent Auto 0.5 % (0-4); Hematocrit 44.4 % (37.0-47.0); Hemoglobin 15.6 g/dl (12.0-16.0); Imm Gran Abs Auto 0.09 X10*3/uL (0.00-0.03); Imm Gran Pct Auto 0.5 % (0.0-0.4); Lymphocytes Absolute Auto 3.8 X10*3/uL (1.2-4.9); Lymphocytes Percent Auto 23.2 % (20-40); Mean Corpuscular HGB Conc 35.1 g/dl (31.0-35.0); Mean Corpuscular Hemoglobin 31.6 pg (27.0-33.0); Mean Corpuscular Volume 90.1 fL (80.0-98.0); Mean Platelet Volume 9.1 fL (9.4-12.3); Monocytes Absolute Auto 0.9 X10*3/uL (0.1-1.2); Monocytes Percent Auto 5.5 % (2-11); Neutrophils Absolute Auto 11.5 x10*3/uL (2.0-8.3); Neutrophils Percent Auto 69.9 % (45-73); Platelet Count 286 X10*3/uL (160-400); Red Blood Count 4.93 X10*6/uL (4.20-5.50); White Blood Count 16.5 X10*3/uL (4.8-10.8)
[2022-06-15 18:47] LABS: Alanine Aminotransferase 17 U/L (0-31); Albumin Level 3.9 g/dL (3.5-5.0); Alkaline Phosphatase 76 U/L (39-117); Anion Gap 11 (12-20); Aspartate Amino Transferase 20 U/L (5-31); Bilirubin Total 0.6 mg/dL (0.0-1.0); Blood Urea Nitrogen 18 mg/dL (9-16); Calcium 9.4 mg/dL (8.4-10.2); Carbon Dioxide 24 mmol/L (22-29); Chloride 109 mmol/L (96-108); Estimated Glomerular Filt Rate > 60; Glucose Random 99 mg/dL (60-115); Potassium 4.1 mmol/L (3.3-5.1); Sodium 140 mmol/L (135-145); Total Protein 6.8 g/dL (6.5-8.0); Troponin-I High Sensitivity 4.4 ng/L (<3.5-17.0)
[2022-06-15 19:01] LABS: Influenza A PCR NEGATIVE (Negative); Influenza B PCR NEGATIVE (Negative); Resp Syncy Virus RNA Qual PCR NEGATIVE (Negative); SARS COV2 PCR INHOUSE NEGATIVE (Negative)
[2022-06-15 23:01] VITALS: BP 190/96; PULSE 97; RESP 20; TEMP 36.7; O2SAT 92
[2022-06-15] MEDS: Albuterol Sulfate 2.5 MG, Albuterol/Iprat 2.5/0.5MG 3 ML 3 ML INHALE (23:39)
[2022-06-15 23:40] VITALS: PULSE 80; RESP 20; O2SAT 98
[2022-06-16 00:14] VITALS: BP 176/85; PULSE 96; RESP 20; TEMP 36.6; O2SAT 100
[2022-06-16] MEDS: predniSONE 20 MG TABLET 60 MG PO (00:14)
[2022-06-16] MEDS: guaiFEN/Codeine SF 200/20/10ML 10 ML LIQUID PO (00:14)
[2022-06-16] MEDS: Doxycycline Monohydrate 100 MG CAPSULE PO (00:14)
== END 2022-06-16 00:52 | disposition home or self-care (01) ==
PROVIDERS: Physician Assistant; Emergency Provider Internal Medicine; PCP Nurse Practitioner Family
DX: J40 Bronchitis, not specified as acute or chronic (principal); R06.02 Shortness of breath; M79.10 Myalgia, unspecified site; Z20.822 Contact with and (suspected) exposure to COVID-19; Z79.899 Other long term (current) drug therapy
CPT/HCPCS: 0241U; 36415; 71045; 80053; 84484; 85025; 93005; 94640; 99284

== ENCOUNTER 2022-11-07 17:12 | Emergency (ER) | payer OTHER, SELFPAY ==
--- NOTE | ~2022-11-07 | XR_ITS ---
EXAMINATION: RIGHT ANKLE RIGHT FOOT RIGHT KNEE RIGHT HIP PELVIS CLINICAL INFORMATION: Fall. Pain COMPARISON: None. TECHNIQUE: Frontal view of the pelvis. 2 views right hip 4 views right knee 3 views right ankle 2 views right foot FINDINGS: Pelvis: There is an IUD present. There is no disruption of the SI joints, hips or symphysis. No pelvic fracture demonstrated. No evidence of an abnormal pelvic mass or collection. Right hip: The hip is in normal alignment. The joint spaces preserved. The femoral head contour is smooth. There are some proliferative changes around the greater trochanter which is nontraumatic. Right knee: No acute fracture, subluxation or focal lesion. No significant joint fluid Right ankle: The alignment is normal. No fracture. Calcaneal spurring. Right foot: No fracture or subluxation demonstrated XR/XR foot RT 2V IMPRESSION: No fracture or subluxation demonstrated
--- NOTE | ~2022-11-07 | XR_ITS ---
EXAMINATION: RIGHT ANKLE RIGHT FOOT RIGHT KNEE RIGHT HIP PELVIS CLINICAL INFORMATION: Fall. Pain COMPARISON: None. TECHNIQUE: Frontal view of the pelvis. 2 views right hip 4 views right knee 3 views right ankle 2 views right foot FINDINGS: Pelvis: There is an IUD present. There is no disruption of the SI joints, hips or symphysis. No pelvic fracture demonstrated. No evidence of an abnormal pelvic mass or collection. Right hip: The hip is in normal alignment. The joint spaces preserved. The femoral head contour is smooth. There are some proliferative changes around the greater trochanter which is nontraumatic. Right knee: No acute fracture, subluxation or focal lesion. No significant joint fluid Right ankle: The alignment is normal. No fracture. Calcaneal spurring. Right foot: No fracture or subluxation demonstrated XR/XR ankle RT 2V IMPRESSION: No fracture or subluxation demonstrated
--- NOTE | ~2022-11-07 | XR_ITS ---
EXAMINATION: RIGHT ANKLE RIGHT FOOT RIGHT KNEE RIGHT HIP PELVIS CLINICAL INFORMATION: Fall. Pain COMPARISON: None. TECHNIQUE: Frontal view of the pelvis. 2 views right hip 4 views right knee 3 views right ankle 2 views right foot FINDINGS: Pelvis: There is an IUD present. There is no disruption of the SI joints, hips or symphysis. No pelvic fracture demonstrated. No evidence of an abnormal pelvic mass or collection. Right hip: The hip is in normal alignment. The joint spaces preserved. The femoral head contour is smooth. There are some proliferative changes around the greater trochanter which is nontraumatic. Right knee: No acute fracture, subluxation or focal lesion. No significant joint fluid Right ankle: The alignment is normal. No fracture. Calcaneal spurring. Right foot: No fracture or subluxation demonstrated XR/XR hip RT w PEL1V IMPRESSION: No fracture or subluxation demonstrated
--- NOTE | ~2022-11-07 | XR_ITS ---
EXAMINATION: RIGHT ANKLE RIGHT FOOT RIGHT KNEE RIGHT HIP PELVIS CLINICAL INFORMATION: Fall. Pain COMPARISON: None. TECHNIQUE: Frontal view of the pelvis. 2 views right hip 4 views right knee 3 views right ankle 2 views right foot FINDINGS: Pelvis: There is an IUD present. There is no disruption of the SI joints, hips or symphysis. No pelvic fracture demonstrated. No evidence of an abnormal pelvic mass or collection. Right hip: The hip is in normal alignment. The joint spaces preserved. The femoral head contour is smooth. There are some proliferative changes around the greater trochanter which is nontraumatic. Right knee: No acute fracture, subluxation or focal lesion. No significant joint fluid Right ankle: The alignment is normal. No fracture. Calcaneal spurring. Right foot: No fracture or subluxation demonstrated XR/XR knee RT 4V IMPRESSION: No fracture or subluxation demonstrated
[2022-11-07 17:15] VITALS: BP 220/124; PULSE 110; RESP 18; TEMP 36.6; O2SAT 97; BMI 28.6
[2022-11-07 18:26] VITALS: BP 214/118; PULSE 91; RESP 16; O2SAT 98
--- NOTE | 2022-11-07 18:28 | PC.NURSE ---
This RN re-assessed patient's blood pressure, continues to be high, JEFFY Smith aware
[2022-11-07] MEDS: predniSONE 20 MG TABLET 60 MG PO (18:56)
[2022-11-07] MEDS: Ketorolac Tromethamine 30 MG/ML VIAL IM (18:56)
--- NOTE | 2022-11-07 19:45 | ED_ITS ---
HPI - General Adult General Chief complaint: Extremity Injury, Lower Stated complaint: ankle injury, r hip has sharp pain Time Seen by Provider: 11/07/22 18:21 Source: patient Mode of arrival: ambulatory Limitations: no limitations History of Present Illness HPI narrative: 47 yold female presents to the ED right ankle/knee/hip pain for the past two weeks. patinet states two weeks ago she walked unto an uneven/unsteady curb which caused her to awkardly turn and roll her ankle. THis cuased her to also awkwardly turn her right and hip which caused her to fall unto right hip. patient states since incident she has pain in right ankle/knee/hip patient denies any swelling, rednesss, ecchymosis, warmth, coldness, or parylsis/numbness of right lower extremity. patient denies any calf pain, chest pain, shortness of breath, pleurisy, recent surgery, or recentr long travel. Patient states pain is worse on movement. Related Data Previous Rx's Medication Instructions Recorded cyclobenzaprine 10 mg tablet 10 mg PO BEDTIME PRN muscle spasm 08/08/21 #10 tabs morphine 15 mg immediate release 15 mg PO Q8H PRN pain #8 tabs 08/08/21 tablet benzonatate 100 mg capsule 100 mg PO TID PRN cough 5 days #15 09/16/21 caps albuterol sulfate 90 mcg/actuation 2 puff inhalation Q4-6H PRN 06/16/22 aerosol inhaler (ProAir HFA) shortness of breath or wheezing #8.5 grams benzonatate 200 mg capsule 200 mg PO TID PRN cough #30 caps 06/16/22 doxycycline hyclate 100 mg tablet 100 mg PO BID #20 tabs 06/16/22 prednisone 20 mg tablet 40 mg PO DAILY #10 tabs 06/16/22 oxycodone 5 mg capsule 5 mg PO TID PRN pain 3 days #9 caps 11/07/22 prednisone 20 mg tablet 40 mg PO DAILY 5 days #10 tabs 11/07/22 Allergies Allergy/AdvReac Type Severity Reaction Status Date / Time gluten [GLUTEN] Allergy Severe DIARRHEA, Verified 11/07/22 17:14 ABD CRAMPING Sulfa (Sulfonamide Allergy Unknown UNKNOWN Verified 11/07/22 17:14 Antibiotics) Review of Systems Review of Systems: right hip/knee/ankle pain Yes all other systems are reviewed and are negative [facility] Past Medical History Medical History Celiac disease HTN (hypertension) Social History Social History Alcohol intake: current Alcohol intake frequency: holidays/special occasions only Smoked in Last 30 Days: No Use of substances other than those prescribed or required for medical reasons: No Advance Directives: No Advance Directives Information Provided: No Physical Exam ED Vital Signs: Vital Signs - 24 hr 11/07/22 17:15 11/07/22 18:26 11/07/22 19:56 Temperature 97.8 F Pulse Rate 110 H 91 Respiratory Rate 18 16 Blood Pressure 220/124 H 214/118 H 212/110 H Pulse Oximetry 97 98 Oxygen Delivery Method Room Air Room Air BMI result Body Mass Index 28.6 Const General: cooperative, healthy appearing, comfortable, no acute distress, well developed, alert, awake and Physically active Orientation/consciousness: oriented to person, oriented to place, oriented to time and patient oriented x3 HENMT Head: Yes normal to inspection, Yes No palpable skull fracture present, Yes normocephalic, Yes atraumatic and No abrasion Eyes General: appearance normal, both eyes and all related structures Neck Neck: Yes normal visual inspection, Yes full ROM, Yes no lymphadenopathy, Yes no meningeal signs, Yes trachea midline, Yes supple, No anterior neck swelling and No tender Chest Chest palpation & inspection: normal inspection of the chest and normal palpation of entire chest wall Resp Effort & Inspection: normal respiratory effort and able to speak in complete sentences Auscultation: clear to auscultation bilaterally Cardio Jugular venous distension: no JVD Heart sounds: S1 normal heart sound present and S2 normal heart sound present GI Inspection: Yes normal to inspection and No abdominal wall ecchymosis Palpation (GI): Soft to palpation, not firm, nontender, no guarding and not rigid General: No CVA tenderness and Yes no CVA tenderness Back/Spine/Pelvis Back: no CVA tenderness, No CVA tenderness and No back tenderness Skin General skin exam: no rashes or lesions noted and elasticity normal Neuro General: oriented to person, oriented to place, oriented to time, patient oriented x3, gait normal, tone normal, moves all extremities, Normal light touch and pain sensation, no meningeal signs, no focal motor deficits, CN's II-XI intact bilaterally and normal sensation to monofilament Extrem Other: Bilateral lower extremities negative for swelling, pain edema, or calf tenderness. Upper/lower leg/hip images: 1. Positive for slight tenderness on palpation. Negative for crepitus, ecchymosis, erythema, palpable chord, or deformity. Motor/neuro/vascular exam intact. 2. Positive for slight tenderness on palpation. Negative for crepitus, ecchymosis, erythema, warmth, deformity. Motor/neuro/vascular exam intact. 3. Positive for slight tenderness on palpation. Negative for crepitus, ecchymos is, erythema, warmth, deformity. Motor/neuro/vascular exam intact. Psych Appearance: grossly normal, well kempt and not disheveled Course Course Course Narrative: Patient is sent for x-rays right lower extremity. Reevaluation(s) Reevaluation #1: Patient x-rays are normal. Patient still hypertensive without any neuro deficits/symptoms. Will do labs to make sure there is no kidney injury or heart injury. EKG ordered. Patient states she took her Norvasc earlier today. Clonidine given and also oxycodone. Will sign out to JEFFY Palmer. Patient denies any headache or vision changes. Time: 21:01 Medications Administered Discontinued Medications Generic Name Dose Route Start Last Admin Trade Name Freq PRN Reason Stop Dose Admin Clonidine HCl 0.2 mg 11/07/22 20:05 11/07/22 20:13 Clonidine Hcl 0.2 Mg Tablet PO 11/07/22 20:06 0.2 mg ONCE ONE Administration Protocol Ketorolac Tromethamine 30 mg 11/07/22 18:51 11/07/22 18:56 Ketorolac Tromethamine 30 Mg/Ml Vial IM 11/07/22 18:52 30 mg ONCE ONE Administration Oxycodone HCl 5 mg 11/07/22 20:05 11/07/22 20:14 Oxycodone Hcl Immed Release 5 Mg Tablet PO 11/07/22 20:06 5 mg ONCE ONE Administration Prednisone 60 mg 11/07/22 18:51 11/07/22 18:56 Prednisone 20 Mg Tablet PO 11/07/22 18:52 60 mg ONCE ONE Administration Medical Decision Making Medical Decision Making MDM Narrative: 47-year-old female with right ankle hip knee pain after stepping off curb and turning right lower extremity or quarterly. Patient found to be hypertensive. Negatively neuro deficits. Lab Data 11/07/22 20:33 11/07/22 20:33 Labs: Lab Results 11/07/22 11/07/22 Range/Units 20:33 20:33 WBC 12.2 H (4.8-10.8) X10*3/uL RBC 5.28 (4.20-5.50) X10*6/uL Hgb 16.4 H (12.0-16.0) g/dl Hct 47.6 H (37.0-47.0) % MCV 90.2 (80.0-98.0) fL MCH 31.1 (27.0-33.0) pg MCHC 34.5 (31.0-35.0) g/dl RDW 12.2 (11.0-16.0) % Plt Count 259 (160-400) X10*3/uL MPV 8.8 L (9.4-12.3) fL Immature Gran % (Auto) 0.5 H (0.0-0.4) % Neut % (Auto) 68.7 (45-73) % Lymph % (Auto) 23.6 (20-40) % [place] % (Auto) 4.7 (2-11) % Eos % (Auto) 2.2 (0-4) % Baso % (Auto) 0.3 (0-2) % Lymph # (Auto) 2.9 (1.2-4.9) X10*3/uL [place] # (Auto) 0.6 (0.1-1.2) X10*3/uL Eos # (Auto) 0.3 (0.0-0.4) X10*3/uL Baso # (Auto) 0.0 (0.0-0.2) X10*3/uL Abs Immat Gran (auto) 0.06 H (0.00-0.03) X10*3/uL Absolute Neuts (auto) 8.4 H (2.0-8.3) x10*3/uL Absolute Nucleated RBC 0.000 (0.0-0.012) X10*3/uL Nucleated RBC % (auto) 0.0 (0.0-0.2) /100WBC Sodium 139 (135-145) mmol/L Potassium 4.3 (3.3-5.1) mmol/L Chloride 106 (96-108) mmol/L Carbon Dioxide 24 (22-29) mmol/L Anion Gap 13 (12-20) BUN 15 (9-16) mg/dL Creatinine 0.84 (0.5-1.4) mg/dL Estim Creat Clear Calc 85.5 Estimated GFR > 60 Random Glucose 99 (60-115) mg/dL Calcium 9.6 (8.4-10.2) mg/dL Total Bilirubin 0.8 (0.0-1.0) mg/dL AST 12 (5-31) U/L ALT 16 (0-31) U/L Alkaline Phosphatase 88 (39-117) U/L Total Protein 7.0 (6.5-8.0) g/dL Albumin 4.5 (3.5-5.0) g/dL Independent Interpretation I performed an independent interpretation of an: EKG (Normal sinus rhythm. Ventricular rate 81. TN interval 148. QRS 64. QTC 427. Negative STEMI) Discharge Plan Discharge Clinical Impression: Hypertension, Ankle sprain and strain, Knee sprain, Sprain of right hip Patient Disposition: Home, Self-Care Instructions: Knee Sprain (ED), Hip Sprain (ED), Hypertension (ED), Ankle Strain (ED) Additional Instructions: Return to the ED immediately for any swelling of lower extremity, redness, blue and black discoloration, fever, chills, calf pain, slurred speech, facial droop, paralysis of extremities, loss of vision, inability to walk, or any other concerning symptoms. Please follow-up with primary care provider. Prescriptions: New oxycodone 5 mg capsule 5 mg PO TID PRN (Reason: pain) 3 Days Qty: 9 0RF Rx Instructions: Partial Fill upon patient request. prednisone 20 mg tablet 40 mg PO DAILY 5 Days Qty: 10 0RF No Action cyclobenzaprine 10 mg tablet 10 mg PO BEDTIME PRN (Reason: muscle spasm) Qty: 10 0RF morphine 15 mg tablet 15 mg PO Q8H PRN (Reason: pain) Qty: 8 0RF Rx Instructions: Patient can partially filled prescription upon request benzonatate 100 mg capsule 100 mg PO TID PRN (Reason: cough) 5 Days Qty: 15 0RF benzonatate 200 mg capsule 200 mg PO TID PRN (Reason: cough) Qty: 30 0RF doxycycline hyclate 100 mg tablet 100 mg PO BID Qty: 20 0RF prednisone 20 mg tablet 40 mg PO DAILY Qty: 10 0RF albuterol sulfate [ProAir HFA] 90 mcg/actuation HFA aerosol inhaler 2 puff inhalation Q4-6H PRN (Reason: shortness of breath or wheezing) Qty: 8.5 0RF Print Language: Kazakh
[2022-11-07 19:56] VITALS: BP 212/110
--- NOTE | 2022-11-07 20:05 | ECG_ITS ---
Test Reason : HYPERTENSION Blood Pressure : / mmHG Vent. Rate : 081 BPM Atrial Rate : 081 BPM P-R Int : 148 ms QRS Dur : 064 ms QT Int : 368 ms P-R-T Axes : 058 002 041 degrees QTc Int : 427 ms Normal sinus rhythm Septal infarct (cited on or before 28-OCT-2015) Abnormal ECG When compared with ECG of 15-JUN-2022 18:01, Questionable change in initial forces of Anterior leads Referred By: Luis Joy Electronically Signed By:ARIELLE HILLS
[2022-11-07] MEDS: cloNIDine HCL 0.2 MG TABLET PO (20:13)
[2022-11-07] MEDS: oxyCODONE HCl Immed Release 5 MG TABLET PO (20:14)
[2022-11-07 20:39] LABS: MANUAL DIFF FLAG NO
[2022-11-07 20:43] LABS: Basophils Percent Auto 0.3 % (0-2); Eosinophils Absolute Auto 0.3 X10*3/uL (0.0-0.4); Eosinophils Percent Auto 2.2 % (0-4); Hematocrit 47.6 % (37.0-47.0); Hemoglobin 16.4 g/dl (12.0-16.0); Imm Gran Abs Auto 0.06 X10*3/uL (0.00-0.03); Imm Gran Pct Auto 0.5 % (0.0-0.4); Lymphocytes Absolute Auto 2.9 X10*3/uL (1.2-4.9); Lymphocytes Percent Auto 23.6 % (20-40); Mean Corpuscular HGB Conc 34.5 g/dl (31.0-35.0); Mean Corpuscular Hemoglobin 31.1 pg (27.0-33.0); Mean Corpuscular Volume 90.2 fL (80.0-98.0); Mean Platelet Volume 8.8 fL (9.4-12.3); Monocytes Absolute Auto 0.6 X10*3/uL (0.1-1.2); Monocytes Percent Auto 4.7 % (2-11); Neutrophils Absolute Auto 8.4 x10*3/uL (2.0-8.3); Neutrophils Percent Auto 68.7 % (45-73); Platelet Count 259 X10*3/uL (160-400); Red Blood Count 5.28 X10*6/uL (4.20-5.50); Red Cell Distribution Width 12.2 % (11.0-16.0); White Blood Count 12.2 X10*3/uL (4.8-10.8)
[2022-11-07 21:03] LABS: Alanine Aminotransferase 16 U/L (0-31); Albumin Level 4.5 g/dL (3.5-5.0); Alkaline Phosphatase 88 U/L (39-117); Anion Gap 13 (12-20); Aspartate Amino Transferase 12 U/L (5-31); Bilirubin Total 0.8 mg/dL (0.0-1.0); Blood Urea Nitrogen 15 mg/dL (9-16); Calcium 9.6 mg/dL (8.4-10.2); Carbon Dioxide 24 mmol/L (22-29); Chloride 106 mmol/L (96-108); Creatinine Clr Calc Pharmacy 85.5; Estimated Glomerular Filt Rate > 60; Glucose Random 99 mg/dL (60-115); Potassium 4.3 mmol/L (3.3-5.1); Sodium 139 mmol/L (135-145)
[2022-11-07 21:10] LABS: Troponin-I High Sensitivity 4.5 ng/L (<3.5-17.0)
[2022-11-07 21:23] LABS: Partial Thromboplastin Time 22.9 SEC (26.0-36.4)
[2022-11-07 21:28] VITALS: BP 149/91
--- NOTE | 2022-11-07 21:29 | PC.NURSE ---
b/p reaqssesed after clonidine 0.2mg pt B/p now 149/91 provider aware, no new orders at this time
[2022-11-07 21:31] VITALS: BP 149/91
== END 2022-11-07 22:12 | disposition home or self-care (01) ==
PROVIDERS: Physician Assistant; Emergency Provider Internal Medicine; PCP Nurse Practitioner Family
DX: S93.401A Sprain of unspecified ligament of right ankle, initial encounter (principal); I10 Essential (primary) hypertension; M79.671 Pain in right foot; M25.551 Pain in right hip; R94.31 Abnormal electrocardiogram [ECG] [EKG]; X50.1XXA Overexertion from prolonged static or awkward postures, initial encounter; Y93.9 Activity, unspecified; Y92.480 Sidewalk as the place of occurrence of the external cause; Y99.9 Unspecified external cause status; Z79.899 Other long term (current) drug therapy
CPT/HCPCS: 36415; 73502; 73564; 73600; 73620; 80053; 84484; 85025; 85610; 85730; 93005; 96372; 99284; J1885

== ENCOUNTER 2023-03-15 10:32 | Emergency (ER) | payer OTHER, SELFPAY ==
--- NOTE | ~2023-03-15 | XR_ITS ---
EXAMINATION: XR CHEST CLINICAL INFORMATION: Cough Hoarseness, chest pain, flank pain since Covid 1 month ago COMPARISON: Chest 06/15/2022 TECHNIQUE: Frontal view of the chest was obtained. 11:03 AM FINDINGS: No significant abnormality is noted involving the heart, lungs, mediastinum or soft tissues. Partial visualization of plate and screws in the lower cervical spine. XR/XR chest 1V IMPRESSION: No acute cardiopulmonary disease.
[2023-03-15 10:36] VITALS: BP 191/100; PULSE 72; RESP 18; O2SAT 98; BMI 27.5
[2023-03-15 11:06] LABS: MANUAL DIFF FLAG NO
[2023-03-15 11:13] LABS: Basophils Percent Auto 0.3 % (0-2); Eosinophils Percent Auto 0.1 % (0-4); Hematocrit 47.7 % (37.0-47.0); Hemoglobin 16.2 g/dl (12.0-16.0); Imm Gran Abs Auto 0.07 X10*3/uL (0.00-0.03); Imm Gran Pct Auto 0.5 % (0.0-0.4); Lymphocytes Absolute Auto 2.8 X10*3/uL (1.2-4.9); Lymphocytes Percent Auto 18.5 % (20-40); Mean Corpuscular Hemoglobin 31.2 pg (27.0-33.0); Mean Corpuscular Volume 91.9 fL (80.0-98.0); Mean Platelet Volume 9.2 fL (9.4-12.3); Monocytes Absolute Auto 0.7 X10*3/uL (0.1-1.2); Monocytes Percent Auto 4.5 % (2-11); Neutrophils Absolute Auto 11.6 x10*3/uL (2.0-8.3); Neutrophils Percent Auto 76.1 % (45-73); Platelet Count 249 X10*3/uL (160-400); Red Blood Count 5.19 X10*6/uL (4.20-5.50); Red Cell Distribution Width 12.6 % (11.0-16.0); White Blood Count 15.3 X10*3/uL (4.8-10.8)
[2023-03-15 11:22] LABS: Alanine Aminotransferase 14 U/L (0-31); Albumin Level 4.2 g/dL (3.5-5.0); Alkaline Phosphatase 72 U/L (39-117); Anion Gap 13 (12-20); Aspartate Amino Transferase 11 U/L (5-31); Bilirubin Total 0.5 mg/dL (0.0-1.0); Blood Urea Nitrogen 16 mg/dL (9-16); Calcium 9.1 mg/dL (8.4-10.2); Carbon Dioxide 21 mmol/L (22-29); Chloride 111 mmol/L (96-108); Creatinine Clr Calc Pharmacy 80.9; Estimated Glomerular Filt Rate > 60; Glucose Random 157 mg/dL (60-115); Potassium 3.8 mmol/L (3.3-5.1); Sodium 141 mmol/L (135-145); Total Protein 6.9 g/dL (6.5-8.0)
--- NOTE | 2023-03-15 12:15 | ECG_ITS ---
Test Reason : SOB Blood Pressure : / mmHG Vent. Rate : 066 BPM Atrial Rate : 066 BPM P-R Int : 150 ms QRS Dur : 066 ms QT Int : 354 ms P-R-T Axes : 036 009 018 degrees QTc Int : 371 ms Normal sinus rhythm Septal infarct (cited on or before 28-OCT-2015) Nonspecific T wave abnormality Abnormal ECG When compared with ECG of 07-NOV-2022 21:04, Nonspecific T wave abnormality now evident in Inferior leads Nonspecific T wave abnormality, worse in Lateral leads QT has shortened Referred By: Elizabeth Miller Electronically Signed By:EDWINA COSTA
--- NOTE | 2023-03-15 12:16 | ED.GENADULT ---
HPI - General Adult General Chief complaint: General Medical Stated complaint: SOB/Dizziness/Kidney issues Time Seen by Provider: 03/15/23 13:10 Source: patient Mode of arrival: ambulatory Limitations: no limitations History of Present Illness HPI narrative: COVID positive 3 weeks cough, weakness, tired, flank pain. Patient with COPD, not a drinker. Onset (ago): week(s) Related Data Previous Rx's Medication Instructions Recorded cyclobenzaprine 10 mg tablet 10 mg PO BEDTIME PRN muscle spasm 08/08/21 #10 tabs morphine 15 mg immediate release 15 mg PO Q8H PRN pain #8 tabs 08/08/21 tablet benzonatate 100 mg capsule 100 mg PO TID PRN cough 5 days #15 09/16/21 caps albuterol sulfate 90 mcg/actuation 2 puff inhalation Q4-6H PRN 06/16/22 aerosol inhaler (ProAir HFA) shortness of breath or wheezing #8.5 grams benzonatate 200 mg capsule 200 mg PO TID PRN cough #30 caps 06/16/22 doxycycline hyclate 100 mg tablet 100 mg PO BID #20 tabs 06/16/22 prednisone 20 mg tablet 40 mg (2 x 20 mg) PO DAILY #10 tabs 06/16/22 oxycodone 5 mg capsule 5 mg PO TID PRN pain 3 days #9 caps 11/07/22 prednisone 20 mg tablet 40 mg (2 x 20 mg) PO DAILY 5 days 11/07/22 #10 tabs prednisone 20 mg tablet 60 mg (3 x 20 mg) PO DAILY #12 tabs 03/15/23 Allergies Allergy/AdvReac Type Severity Reaction Status Date / Time gluten [GLUTEN] Allergy Severe DIARRHEA, Verified 11/07/22 17:14 ABD CRAMPING Sulfa (Sulfonamide Allergy Unknown UNKNOWN Verified 11/07/22 17:14 Antibiotics) Review of Systems Review of Systems: Yes all other systems are reviewed and are negative Neurologic: Denies Sensory deficit (Neuro) [facility] Past Medical History Medical History Celiac disease HTN (hypertension) Social History Social History Alcohol intake: current Alcohol intake frequency: does not drink Smoked in Last 30 Days: No Use of substances other than those prescribed or required for medical reasons: No Advance Directives: No Advance Directives Information Provided: No Physical Exam ED Vital Signs: Vital Signs - 24 hr 03/15/23 10:36 03/15/23 13:12 03/15/23 14:08 Temperature 98.5 F Pulse Rate 72 76 72 Respiratory Rate 18 19 15 Blood Pressure 191/100 H 176/81 H Pulse Oximetry 98 100 Oxygen Delivery Method Room Air Room Air BMI result Body Mass Index 27.5 Const Other: looking older than stated age occaisionally coughing Nutritional Appearance: obese Orientation/consciousness: oriented to person and patient oriented x3 Limitations: no limitations HENMT Head: Yes normal to inspection Ears: external ears normal General nose exam: Normal external nose present Mouth: Normal oral and palatal mucosa present and oropharynx normal Throat: Yes posterior oropharynx normal Eyes General: appearance normal, both eyes and all related structures Neck Neck: Yes normal visual inspection Chest Chest palpation & inspection: normal inspection of the chest Resp Other: very distant breath sounds slight wheeze Cardio Jugular venous distension: no JVD Rate: regular rate Rhythm: regular rhythm Heart sounds: S1 normal heart sound present and S2 normal heart sound present GI Inspection: Yes normal to inspection Palpation (GI): Soft to palpation, nontender and No hepatosplenomegaly present Auscultation: normal bowel sounds General: Yes no CVA tenderness Back/Spine/Pelvis Back: no CVA tenderness Skin General skin exam: no rashes or lesions noted Neuro General: oriented to person and patient oriented x3 Cranial nerves: Yes CN's II-XII intact bilaterally Motor exam (neuro): 5/5 motor strength present throughout Sensory Exam: No Sensory deficit (Neuro) Extrem General: Yes normal to inspection Psych Appearance: grossly normal Course Course Course Narrative: This is an RME: Additional HPI, ROS, PE not included below will be deferred to primary provider. This is a 48 yo f presenting w/ multiple complaints. Was covid + over a week ago now complaining of fatigue, malaise, dizzy, sob ever since covid and worsening acutely X 3 days. Also complaining of intermittent chronic R flank pain Plan- labs, xray, ekg, ua Medications Administered Discontinued Medications Generic Name Dose Route Start Last Admin Trade Name Freq PRN Reason Stop Dose Admin Albuterol/Ipratropium 3 ml 03/15/23 13:20 03/15/23 14:07 Albuterol/Iprat 2.5/0.5mg 3 Ml Ampul.Neb INHALE 03/15/23 13:21 3 ml ONCE ONE Administration Prednisone 60 mg 03/15/23 13:20 03/15/23 13:33 Prednisone 20 Mg Tablet PO 03/15/23 13:21 60 mg ONCE ONE Administration Medical Decision Making Differential Diagnosis Differential Diagnoses: The differential diagnosis associated with the presentation includes (pneumonia, COPD, asthma, bronchitis, cardiac ischemia, chf were all considered) Admission/Observation Consideration of admission/observation: Escalation of care including admission/observation considered (upon arrival patient was considered for admission) Lab Data MDM Lab Attestation statement: I reviewed the patient's lab results. (elevated WBC but no sign of infection on xray or in her urine, no chf by BNP) 03/15/23 11:00 03/15/23 11:00 Labs: Lab Results 03/15/23 03/15/23 03/15/23 Range/Units 11:00 12:38 14:55 WBC 15.3 H (4.8-10.8) X10*3/uL RBC 5.19 (4.20-5.50) X10*6/uL Hgb 16.2 H (12.0-16.0) g/dl Hct 47.7 H (37.0-47.0) % MCV 91.9 (80.0-98.0) fL MCH 31.2 (27.0-33.0) pg MCHC 34.0 (31.0-35.0) g/dl RDW 12.6 (11.0-16.0) % Plt Count 249 (160-400) X10*3/uL MPV 9.2 L (9.4-12.3) fL Immature Gran % (Auto) 0.5 H (0.0-0.4) % Neut % (Auto) 76.1 H (45-73) % Lymph % (Auto) 18.5 L (20-40) % [place] % (Auto) 4.5 (2-11) % Eos % (Auto) 0.1 (0-4) % Baso % (Auto) 0.3 (0-2) % Lymph # (Auto) 2.8 (1.2-4.9) X10*3/uL [place] # (Auto) 0.7 (0.1-1.2) X10*3/uL Eos # (Auto) 0.0 (0.0-0.4) X10*3/uL Baso # (Auto) 0.0 (0.0-0.2) X10*3/uL Abs Immat Gran (auto) 0.07 H (0.00-0.03) X10*3/uL Absolute Neuts (auto) 11.6 H (2.0-8.3) x10*3/uL Absolute Nucleated RBC 0.000 (0.0-0.012) X10*3/uL Nucleated RBC % (auto) 0.0 (0.0-0.2) /100WBC Sodium 141 (135-145) mmol/L Potassium 3.8 (3.3-5.1) mmol/L Chloride 111 H (96-108) mmol/L Carbon Dioxide 21 L (22-29) mmol/L Anion Gap 13 (12-20) BUN 16 (9-16) mg/dL Creatinine 0.86 (0.5-1.4) mg/dL Estim Creat Clear Calc 80.9 Estimated GFR > 60 Random Glucose 157 H (60-115) mg/dL Calcium 9.1 (8.4-10.2) mg/dL Total Bilirubin 0.5 (0.0-1.0) mg/dL AST 11 (5-31) U/L ALT 14 (0-31) U/L Alkaline Phosphatase 72 (39-117) U/L Troponin I High Sens < 2.7 (<3.5-17.0) ng/L B-Natriuretic Peptide 111 H (<100) pg/mL Total Protein 6.9 (6.5-8.0) g/dL Albumin 4.2 (3.5-5.0) g/dL Urine Color Yellow Urine Appearance Cloudy Urine pH 5.5 (5.0-9.0) Ur Specific [place] 1.025 (1.005-1.025) Urine Protein Negative (Neg-Trace) mg/dL Urine Glucose (UA) Negative (Negative) mg/dL Urine Ketones Negative (Negative) mg/dL Urine Blood Negative (Negative) Urine Nitrite Negative (Negative) Ur Leukocyte Esterase Negative (Negative) Independent Interpretation I performed an independent interpretation of an: EKG Interpretation: sinus [address] or twave changes External Record Review External record reviewed: Outpatient record Prescription Management I considered prescription management with: Antibiotic (considered but CXR normal and urine normal) Chronic Conditions Patient?s care impacted by: Other (copd) Discharge Plan Discharge Clinical Impression: Bronchitis Patient Disposition: Home, Self-Care Instructions: Chronic Bronchitis (ED) Prescriptions: New prednisone 20 mg tablet 60 mg PO DAILY Qty: 12 0RF No Action cyclobenzaprine 10 mg tablet 10 mg PO BEDTIME PRN (Reason: muscle spasm) Qty: 10 0RF morphine 15 mg tablet 15 mg PO Q8H PRN (Reason: pain) Qty: 8 0RF Rx Instructions: Patient can partially filled prescription upon request benzonatate 100 mg capsule 100 mg PO TID PRN (Reason: cough) 5 Days Qty: 15 0RF benzonatate 200 mg capsule 200 mg PO TID PRN (Reason: cough) Qty: 30 0RF doxycycline hyclate 100 mg tablet 100 mg PO BID Qty: 20 0RF prednisone 20 mg tablet 40 mg PO DAILY Qty: 10 0RF albuterol sulfate [ProAir HFA] 90 mcg/actuation HFA aerosol inhaler 2 puff inhalation Q4-6H PRN (Reason: shortness of breath or wheezing) Qty: 8.5 0RF oxycodone 5 mg capsule 5 mg PO TID PRN (Reason: pain) 3 Days Qty: 9 0RF Rx Instructions: Partial Fill upon patient request. prednisone 20 mg tablet 40 mg PO DAILY 5 Days Qty: 10 0RF Referrals: Physician,Unknown J [Primary Care Provider] - 1 week
[2023-03-15 13:12] VITALS: BP 176/81; PULSE 76; RESP 19; TEMP 36.9; O2SAT 100
[2023-03-15 13:15] LABS: Troponin-I High Sensitivity < 2.7 ng/L (<3.5-17.0)
[2023-03-15 13:18] LABS: B Type Natriuretic Peptide 111 pg/mL (<100)
[2023-03-15] MEDS: predniSONE 20 MG TABLET 60 MG PO (13:33)
[2023-03-15] MEDS: Albuterol/Iprat 2.5/0.5MG 3 ML AMPUL.NEB INHALE (14:07)
[2023-03-15 14:08] VITALS: PULSE 72; RESP 15; O2SAT 100
[2023-03-15 15:02] LABS: Appearance Urine Cloudy; Color Urine Yellow; Glucose Urine UA Negative (Negative); Leukocyte Esterase Urine Negative (Negative); Nitrite Urine Negative (Negative); PH 5.5 (5.0-9.0); Specific Gravity - Urine 1.025 (1.005-1.025); Urine Blood Negative (Negative); Urine Ketones Negative (Negative); Urine Protein Negative (Neg-Trace)
[2023-03-15 15:32] VITALS: BP 164/97; PULSE 67; RESP 18; TEMP 36.9; O2SAT 97
== END 2023-03-15 15:37 | disposition home or self-care (01) ==
PROVIDERS: Physician Assistant; Emergency Provider Emergency Medicine
DX: J40 Bronchitis, not specified as acute or chronic (principal); R06.02 Shortness of breath; R07.89 Other chest pain; R42 Dizziness and giddiness; J44.9 Chronic obstructive pulmonary disease, unspecified; R05.9 Cough, unspecified; Z79.899 Other long term (current) drug therapy
CPT/HCPCS: 36415; 71045; 80053; 81003; 83880; 84484; 85025; 93005; 94640; 99284; 99285

== ENCOUNTER 2023-11-04 19:35 | Emergency (ER) | payer OTHER, SELFPAY ==
[2023-11-04 19:44] VITALS: BP 140/84; PULSE 88; RESP 20; TEMP 37.1; O2SAT 96; BMI 25.3
--- NOTE | 2023-11-04 19:45 | ED.GENADULT ---
HPI - General Adult General Chief complaint: Back Pain/Injury Stated complaint: hip/ back pain, cant walk Time Seen by Provider: 11/04/23 22:13 Source: patient Mode of arrival: ambulatory Limitations: no limitations History of Present Illness HPI narrative: Patient with chronic back pain had cortisone shot in the right side 2 weeks ago since yesterday complaining of increased pain unable to move radiating to the other side and the both legs no recent trauma no bladder or bowel involvement Related Data Previous Rx's ?Medication ?Instructions ?Recorded cyclobenzaprine 10 mg tablet 10 mg PO BEDTIME PRN muscle spasm 08/08/21 #10 tabs morphine 15 mg immediate release 15 mg PO Q8H PRN pain #8 tabs 08/08/21 tablet benzonatate 100 mg capsule 100 mg PO TID PRN cough 5 days #15 09/16/21 caps albuterol sulfate 90 mcg/actuation 2 puff inhalation Q4-6H PRN 06/16/22 aerosol inhaler (ProAir HFA) shortness of breath or wheezing #8.5 grams benzonatate 200 mg capsule 200 mg PO TID PRN cough #30 caps 06/16/22 doxycycline hyclate 100 mg tablet 100 mg PO BID #20 tabs 06/16/22 prednisone 20 mg tablet 40 mg (2 x 20 mg) PO DAILY #10 tabs 06/16/22 oxycodone 5 mg capsule 5 mg PO TID PRN pain 3 days #9 caps 11/07/22 prednisone 20 mg tablet 40 mg (2 x 20 mg) PO DAILY 5 days 11/07/22 #10 tabs prednisone 20 mg tablet 60 mg (3 x 20 mg) PO DAILY #12 tabs 03/15/23 morphine 15 mg immediate release 15 mg PO Q8H PRN pain #15 tabs 11/05/23 tablet Allergies Allergy/AdvReac Type Severity Reaction Status Date / Time gluten [GLUTEN] Allergy Severe DIARRHEA, Verified 11/04/23 19:47 ABD CRAMPING Sulfa (Sulfonamide Allergy Unknown UNKNOWN Verified 11/04/23 19:47 Antibiotics) Review of Systems Review of Systems: Yes all other systems are reviewed and are negative PMFSH Past Medical History Medical History Celiac disease HTN (hypertension) Social History Social History Alcohol intake: current Alcohol intake frequency: does not drink Advance Directives: No Advance Directives Information Provided: No Do you have a plan to hurt others: No Plan Physical Exam ED Vital Signs: Vital Signs - 24 hr 11/04/23 19:44 11/04/23 23:14 11/05/23 00:40 Temperature 98.7 F 98.7 F 98.7 F Pulse Rate 88 73 70 Respiratory Rate 20 18 17 Blood Pressure 140/84 H 159/81 H 142/76 H Pulse Oximetry 96 96 98 Oxygen Delivery Method Room Air Room Air Room Air BMI result Body Mass Index 25.3 Appearance: Alert. Oriented X3. No acute distress. Eyes: PERRLA, No Nystagmus ENT: Pharynx normal. Oral Mucosa moist Neck: Normal inspection. Neck supple. CVS: Normal heart rate and rhythm. Pulses normal. Respiratory: No respiratory distress. Equal air entry bilateral, no wheezing/rales/rhonchi Abdomen: Soft and nontender. Bowel sounds are present, no mass palpable, no CVA tenderness Skin: Skin warm and dry. Normal skin color. Normal skin turgor. Extremities: No lower extremity edema. No calf tenderness back: Tenderness left lumbosacral area SLR negative bilaterally Neuro: Oriented X 3. No motor deficit. No sensory deficit.No cerebellar signs , cranial nerves II-XII intact Course Course Course Narrative: This is an RME done by JEFFY Miller: Additional HPI, ROS, PE not included below will be deferred to primary provider. 48 year old female presents w/ hip and back pain reporting this has been going on a few days worsening was unable to get out of bed this AM. Long standing hx of back pain. No red flag sx. PE- uncomfortable appearing. Unable to ambulate getting around in a wheelchair. No saddle paresthesias. Normal repiratory rate. Normal pulses. No signs of acute distress. Plan- Medications Administered Discontinued Medications Generic Name Dose Route Start Last Admin Trade Name Freq PRN Reason Stop Dose Admin Morphine Sulfate 15 mg 11/04/23 22:43 11/04/23 22:56 Morphine Sulfate Immed Release 15 Mg Tablet PO 11/04/23 22:44 15 mg ONCE ONE Administration Medical Decision Making Medical Decision Making [facility] Narrative: Patient with flare-up of chronic low back pain discharge patient home on morphine Lab Data [facility] Lab Attestation statement: I reviewed the patient's lab results. 11/04/23 20:43 11/04/23 20:43 Labs: Lab Results 11/04/23 Range/Units 20:43 WBC 12.9 H (4.8-10.8) X10*3/uL RBC 4.78 (4.20-5.50) X10*6/uL Hgb 15.4 (12.0-16.0) g/dl Hct 43.8 (37.0-47.0) % MCV 91.6 (80.0-98.0) fL MCH 32.2 (27.0-33.0) pg MCHC 35.2 H (31.0-35.0) g/dl RDW 13.0 (11.0-16.0) % Plt Count 254 (160-400) X10*3/uL MPV 8.7 L (9.4-12.3) fL Immature Gran % (Auto) 0.5 H (0.0-0.4) % Neut % (Auto) 68.8 (45-73) % Lymph % (Auto) 23.2 (20-40) % [place] % (Auto) 5.5 (2-11) % Eos % (Auto) 1.7 (0-4) % Baso % (Auto) 0.3 (0-2) % Lymph # (Auto) 3.0 (1.2-4.9) X10*3/uL [place] # (Auto) 0.7 (0.1-1.2) X10*3/uL Eos # (Auto) 0.2 (0.0-0.4) X10*3/uL Baso # (Auto) 0.0 (0.0-0.2) X10*3/uL Abs Immat Gran (auto) 0.06 H (0.00-0.03) X10*3/uL Absolute Neuts (auto) 8.9 H (2.0-8.3) x10*3/uL Absolute Nucleated RBC 0.000 (0.0-0.012) X10*3/uL Nucleated RBC % (auto) 0.0 (0.0-0.2) /100WBC ESR 6 (0-20) MM/HR Sodium 143 (135-145) mmol/L Potassium 4.2 (3.3-5.1) mmol/L Chloride 104 (96-108) mmol/L Carbon Dioxide 26 (22-29) mmol/L Anion Gap 17 (12-20) BUN 19 H (9-16) mg/dL Creatinine 0.91 (0.5-1.4) mg/dL Estim Creat Clear Calc 76.4 Estimated GFR > 60 Random Glucose 151 H (60-115) mg/dL Calcium 9.5 (8.4-10.2) mg/dL Magnesium 1.9 (1.6-2.6) mg/dL Total Bilirubin 0.9 (0.0-1.0) mg/dL AST 11 (5-31) U/L ALT 14 (0-31) U/L Alkaline Phosphatase 72 (39-117) U/L C-Reactive Protein 0.36 (< or = 0.50) mg/dL Total Protein 7.0 (6.5-8.0) g/dL Albumin 4.1 (3.5-5.0) g/dL Discharge Plan Discharge Clinical Impression: Strain of lumbar region Patient Disposition: Home, Self-Care Instructions: Chronic Back Pain (DC) Additional Instructions: Continue pain medications and muscle relaxant Morphine tab for severe pain Follow-up with your pain clinic Prescriptions: New morphine 15 mg tablet 15 mg PO Q8H PRN (Reason: pain) Qty: 15 0RF Rx Instructions: Partial Fill upon patient request. No Action cyclobenzaprine 10 mg tablet 10 mg PO BEDTIME PRN (Reason: muscle spasm) Qty: 10 0RF morphine 15 mg tablet 15 mg PO Q8H PRN (Reason: pain) Qty: 8 0RF Rx Instructions: Patient can partially filled prescription upon request benzonatate 100 mg capsule 100 mg PO TID PRN (Reason: cough) 5 Days Qty: 15 0RF benzonatate 200 mg capsule 200 mg PO TID PRN (Reason: cough) Qty: 30 0RF doxycycline hyclate 100 mg tablet 100 mg PO BID Qty: 20 0RF prednisone 20 mg tablet 40 mg PO DAILY Qty: 10 0RF albuterol sulfate [ProAir HFA] 90 mcg/actuation HFA aerosol inhaler 2 puff inhalation Q4-6H PRN (Reason: shortness of breath or wheezing) Qty: 8.5 0RF oxycodone 5 mg capsule 5 mg PO TID PRN (Reason: pain) 3 Days Qty: 9 0RF Rx Instructions: Partial Fill upon patient request. prednisone 20 mg tablet 40 mg PO DAILY 5 Days Qty: 10 0RF prednisone 20 mg tablet 60 mg PO DAILY Qty: 12 0RF Stand Alone Forms: Work/School Release Interventions: ED Discharge Assessment Last Done: 11/05/23 00:40 Discharge Date/Time: 11/05/23 00:41 Print Language: [place]
[2023-11-04 20:52] LABS: MANUAL DIFF FLAG NO
[2023-11-04 20:54] LABS: Basophils Percent Auto 0.3 % (0-2); Eosinophils Absolute Auto 0.2 X10*3/uL (0.0-0.4); Eosinophils Percent Auto 1.7 % (0-4); Hematocrit 43.8 % (37.0-47.0); Hemoglobin 15.4 g/dl (12.0-16.0); Imm Gran Abs Auto 0.06 X10*3/uL (0.00-0.03); Imm Gran Pct Auto 0.5 % (0.0-0.4); Lymphocytes Percent Auto 23.2 % (20-40); Mean Corpuscular HGB Conc 35.2 g/dl (31.0-35.0); Mean Corpuscular Hemoglobin 32.2 pg (27.0-33.0); Mean Corpuscular Volume 91.6 fL (80.0-98.0); Mean Platelet Volume 8.7 fL (9.4-12.3); Monocytes Absolute Auto 0.7 X10*3/uL (0.1-1.2); Monocytes Percent Auto 5.5 % (2-11); Neutrophils Absolute Auto 8.9 x10*3/uL (2.0-8.3); Neutrophils Percent Auto 68.8 % (45-73); Platelet Count 254 X10*3/uL (160-400); Red Blood Count 4.78 X10*6/uL (4.20-5.50); White Blood Count 12.9 X10*3/uL (4.8-10.8)
[2023-11-04 21:12] LABS: Alanine Aminotransferase 14 U/L (0-31); Albumin Level 4.1 g/dL (3.5-5.0); Alkaline Phosphatase 72 U/L (39-117); Anion Gap 17 (12-20); Aspartate Amino Transferase 11 U/L (5-31); Blood Urea Nitrogen 19 mg/dL (9-16); C Reactive Protein 0.36 mg/dL (< or = 0.50); Calcium 9.5 mg/dL (8.4-10.2); Carbon Dioxide 26 mmol/L (22-29); Chloride 104 mmol/L (96-108); Creatinine Clr Calc Pharmacy 76.4; Estimated Glomerular Filt Rate > 60; Glucose Random 151 mg/dL (60-115); Magnesium 1.9 mg/dL (1.6-2.6); Potassium 4.2 mmol/L (3.3-5.1); Sodium 143 mmol/L (135-145)
[2023-11-04 21:28] LABS: Bilirubin Total 0.9 mg/dL (0.0-1.0)
[2023-11-04 21:37] LABS: Erythrocyte Sedimentation Rate 6 MM/HR (0-20)
[2023-11-04] MEDS: Morphine Sulfate Immed Release 15 MG TABLET PO (22:56)
[2023-11-04 23:14] VITALS: BP 159/81; PULSE 73; RESP 18; TEMP 37.1; O2SAT 96
[2023-11-05 00:40] VITALS: BP 142/76; PULSE 70; RESP 17; TEMP 37.1; O2SAT 98
== END 2023-11-05 00:41 | disposition home or self-care (01) ==
PROVIDERS: Physician Assistant; Emergency Provider Internal Medicine
DX: S39.012A Strain of muscle, fascia and tendon of lower back, initial encounter (principal); X58.XXXA Exposure to other specified factors, initial encounter; Y93.9 Activity, unspecified; Y92.9 Unspecified place or not applicable; Y99.9 Unspecified external cause status
CPT/HCPCS: 36415; 80053; 83735; 85025; 85652; 86140; 99283

== ENCOUNTER 2024-02-13 09:00 | Outpatient (RCR) | payer OTHER, SELFPAY | END 2024-02-13 12:49 | disposition home or self-care (01) | LOC: HO.PTCHIC 09:00 | PROVIDERS: PCP Nurse Practitioner Family; Visit Provider Nurse Practitioner Adult Health | DX: M51.36 Other intervertebral disc degeneration, lumbar region (principal) | CPT/HCPCS: 97110; 97140; 97162 ==